=== PATIENT | female | born 1935 | race Caucasian/White ===

== ENCOUNTER 2018-03-05 13:47 | Inpatient (IN) | payer MEDICARE, MEDICAID ==
[2018-03-05] MEDS ORDERED: Acetaminophen 325 MG Tab PO PRN (14:54)
--- NOTE | 2018-03-05 15:50 | PCM.HP ---
H&P History of Present Illness - General Date of Service: 03/05/18 Admit Problem/Dx: Admission Diagnosis/Problem Admission Diagnosis/Problem Community acquired pneumonia Source of Information: Patient, Shelter Records History Limitations: Reports: No Limitations - History of Present Illness Initial Comments - Free Text/Narative: Mrs. Pimentel is an 82 yo female who presented to clinic today for re-evaluation of an ongoing cough for the past 10-14 days. Symptoms started around 02/22 with congestion, rhinorrhea, cough, and wheezing. She was seen in clinic on 02/25 and diagnosed with a viral illness; symptomatic cares were recommended. She was then seen again on 03/01 for worsening symptoms. She was started on azithromycin and given instructions to follow-up in 2 days. She was seen then on 03/03 and started on prednisone. Despite all of this, she has not improved. In fact, she states that she may actually be feeling worse since her last visit. She continues with the cough that feels "wet" but she is unable to get anything up. She also still feels quite short of breath as well. I had been under the impression she was getting her albuterol at least twice/day but it sounds like this is not the case. She is getting it at most once/day and it is helpful when she gets it. She denies any chest pain. She has not had any fever or chills but does feel generally weak and fatigued. She really does not feel she has improved with any of the above interventions. She has a history of pneumonia and felt like this might be what is going on now as well. - Related Data Allergies/Adverse Reactions: Allergies Allergy/AdvReac Type Severity Reaction Status Date / Time No Known Allergies Allergy Verified 03/05/18 15:31 Home Medications: Home Meds Acetaminophen [Tylenol] 650 mg PO Q4H PRN MDD 3000 mg 01/21/14 [History] Albuterol/Ipratropium [DuoNeb 3-0.5 MG/3 ML] 3 ml NEB Q4H PRN 01/21/14 [History] Furosemide [Lasix] 40 mg PO DAILY 01/21/14 [History] Gabapentin [Neurontin] 300 mg PO BEDTIME 01/21/14 [History] Metoprolol Succinate [Toprol XL 100mg] 50 mg PO DAILY 01/21/14 [History] Venlafaxine [Effexor XR 24 Hr] 75 mg PO DAILY 01/21/14 [History] Donepezil [Aricept] 10 mg PO BID 09/22/15 [History] Meloxicam 7.5 mg PO DAILY 09/22/15 [History] Potassium Chloride [Klor-Con M10] 10 meq PO DAILY 09/22/15 [History] Albuterol Sulfate [Ventolin Hfa] 2 inh PO Q4H PRN 03/05/18 [History] Azithromycin [IJD: Azithromycin] 250 mg PO DAILY 03/05/18 [History] Cholecalciferol (Vitamin D3) [Vitamin D3] 4,000 unit PO DAILY 03/05/18 [History] Cyanocobalamin (Vitamin B12) [Vitamin B12] 1,000 mcg PO DAILY 03/05/18 [History] Docusate Sodium [Colace] 100 mg PO DAILY 03/05/18 [History] Ergocalciferol (Vitamin D2) [Vitamin D2] 50,000 units PO WEEKLY 03/05/18 [ History] Fluticasone/Vilanterol [Breo Ellipta 200-25 Mcg INH] 1 inh PO DAILY 03/05/18 [ History] Levothyroxine Sodium [Synthroid] 75 mcg PO DAILY 03/05/18 [History] Magnesium Oxide [Magnesium] 400 mg PO DAILY 03/05/18 [History] Omeprazole 40 mg PO DAILY 03/05/18 [History] Polyethylene Glycol 3350 [MiraLAX] 17 gram PO DAILY PRN 03/05/18 [History] Simvastatin 40 mg PO BEDTIME 03/05/18 [History] Venlafaxine HCl [Venlafaxine ER] 150 mg PO DAILY 03/05/18 [History] guaiFENesin [Mucinex] 600 mg PO DAILY PRN 03/05/18 [History] predniSONE 40 mg PO DAILY 03/05/18 [History] risperiDONE 0.25 mg PO BID 03/05/18 [History] traZODone HCl [Trazodone HCl] 50 mg PO DAILY 03/05/18 [History] Past Medical History HEENT History: Reports: Cataract, Retinal Detachment, Other (See Below) Other HEENT History: pseudophakos, presbyopia, blepharitis, posterior vitreous detachment, Cardiovascular History: Reports: CAD, Heart Failure, High Cholesterol, Hypertension, Other (See Below) Other Cardiovascular History: parox SV tach Respiratory History: Reports: Asthma, COPD, Sleep Apnea, Other (See Below) Other Respiratory History: centrilobular emphysema Gastrointestinal History: Reports: Chronic Constipation, Colon Polyp, Diverticulosis, GERD, Other (See Below) Other Gastrointestinal History: lower gi bleed Genitourinary History: Reports: Chronic Renal Insuffiency Musculoskeletal History: Reports: Fibromyalgia, Other (See Below) Other Musculoskeletal History: lumbar DJD, disorder of bone or cartilage, carpal tunnel Neurological History: Reports: Other (See Below) (vascular dementia) Psychiatric History: Reports: Dementia, Depression, Hallucinations, Other (See Below) Other Psychiatric History: insomnia, situational stress Endocrine/Metabolic History: Reports: Hypothyroidism, Vitamin D Deficiency, Other (See Below) Other Endocrine/Metabolic History: enlarged lymph nodes, hypergycemia Hematologic History: Reports: B12 Deficiency, Iron Deficiency, Other (See Below) Other Hematologic History: leukocytosis, vit d deficiency, hypomagnesium Immunologic History: Reports: None Oncologic (Cancer) History: Reports: Thyroid Dermatologic History: Reports: None - Past Surgical History HEENT Surgical History: Reports: Eye Surgery GI Surgical History: Reports: Cholecystectomy, Hernia Repair/Other, Other (See Below) (hemicolectomy) Female Surgical History: Reports: Hysterectomy Endocrine Surgical History: Reports: Thyroidectomy Social & Family History - Family History Cardiac: Reports: [place] Endocrine/Metabolic: Reports: Diabetes, type II Oncologic: Reports: Breast, Ovarian - Tobacco Use Smoking Status *Q: Never Smoker Second Hand Smoke Exposure: No - Caffeine Use Caffeine Use: Reports: Coffee, Soda - Alcohol Use Alcohol Use History: No Days Per Week of Alcohol Use: 0 Number of Drinks Per Day: 0 Total Drinks Per Week: 0 Alcohol Use in Last Twelve Months: No - Recreational Drug Use Recreational Drug Use: No Drug Use in Last 12 Months: No - Living Situation & Occupation Living situation: Reports: , Extended Care Facility Occupation: Retired H&P Review of Systems - Review of Systems: Review Of Systems: See Below General: Reports: Malaise, Weakness, Fatigue HEENT: Reports: Rhinitis, Sinus Congestion Pulmonary: Reports: Shortness of Breath, Wheezing, Cough Cardiovascular: Reports: No Symptoms Gastrointestinal: Reports: No Symptoms Genitourinary: Reports: No Symptoms Musculoskeletal: Reports: No Symptoms Skin: Reports: No Symptoms Neurological: Reports: No Symptoms Hematologic/Lymphatic: Reports: No Symptoms Exam - Exam Exam: See Below - Vital Signs Vital Signs: Last Vital Signs Temp 36.4 C 03/05/18 15:09 Pulse 58 L 03/05/18 15:09 Resp 16 03/05/18 15:09 BP 158/95 H 03/05/18 15:09 Pulse Ox 96 03/05/18 15:09 Weight: 79.016 kg - Exam General: Alert, Cooperative HEENT: Conjunctiva Clear, Mucosa Moist & [place], Posterior Pharynx Clear, Pupils Equal, Pupils Reactive, TMs Clear Neck: Supple, Trachea Midline. No: Lymphadenopathy, Thyromegaly Lungs: Normal Respiratory Effort, Crackles (RLL), Wheezing (diffusely) Cardiovascular: Regular Rate, Regular Rhythm, Normal S1, Normal S2. No: Systolic Murmur, Diastolic Murmur GI/Abdominal Exam: Normal Bowel Sounds, Soft, Non-Tender, No Organomegaly, No Distention, No Mass Extremities: Normal Inspection, Non-Tender, No Pedal Edema, Normal Capillary Refill Skin: Warm, Dry, Intact - Problem List (1) Community acquired pneumonia SNOMED Code(s): 647129069 ICD Code: J18.9 - PNEUMONIA, UNSPECIFIED ORGANISM Status: Acute Current Visit: Yes Problem Details: - Patient does have more crackles in the RLL today as well as a leukocytosis and an infiltrate in the RLL on chest x-ray. - Therefore, most appropriate diagnosis is community acquired pneumonia. CURB- 65 score is 2, which is borderline. However, she has been on outpatient treatment for the past week; therefore, admission is recommended on that basis. - She is in agreement as are both of her daughters. - Will continue azithromycin but add ceftriaxone. - If she is not improving over the next 24-48 hours, may need to transition to levofloxacin instead. - Will obtain blood cultures if febrile. - Patient will not be able to give a sputum culture as she cannot cough up the sputum. - Continue guaifenesin and treat COPD exacerbation as below. - Oxygen PRN. Qualifiers: Laterality: right Lung location: lower lobe of lung Qualified Code(s): J18.1 - Lobar pneumonia, unspecified organism (2) COPD exacerbation SNOMED Code(s): 226006916 ICD Code: J44.1 - CHRONIC OBSTRUCTIVE PULMONARY DISEASE W (ACUTE) EXACERBATION Status: Acute Current Visit: Yes Problem Details: - Patient also has a COPD/asthma exacerbation. - Will increase prednisone dose to 60 mg. This can be tapered as soon as she is improving. - Otherwise, will also schedule DuoNebs every 4 hours, which can also be spaced as she is improving. - Continue Breo. (3) Asthma SNOMED Code(s): 297804820 ICD Code: J45.909 - UNSPECIFIED ASTHMA, UNCOMPLICATED Status: Acute Current Visit: Yes Problem Details: - See above. Qualifiers: Asthma severity: moderate Asthma persistence: persistent Asthma complication type: with acute exacerbation Qualified Code(s): J45.41 - Moderate persistent asthma with (acute) exacerbation (4) Dehydration, mild SNOMED Code(s): 1167365907682 ICD Code: E86.0 - DEHYDRATION Status: Acute Current Visit: Yes Problem Details: - Creatinine is up slightly from her usual but not enough to call IZABEL. - Will give gentle IV fluids of 75 cc/hr overnight and recheck labs in the am. (5) Chronic kidney disease SNOMED Code(s): 723281202 ICD Code: N18.9 - CHRONIC KIDNEY DISEASE, UNSPECIFIED Status: Chronic Current Visit: Yes Problem Details: - See above. Qualifiers: Chronic kidney disease stage: stage 3 (moderate) Qualified Code(s): N18.3 - Chronic kidney disease, stage 3 (moderate) (6) Vascular dementia SNOMED Code(s): 404516964 ICD Code: F01.50 - VASCULAR DEMENTIA WITHOUT BEHAVIORAL DISTURBANCE Status : Chronic Current Visit: Yes Problem Details: - Frequent reorienting will be important. - Continue aricept and risperdal. Qualifiers: Dementia behavioral disturbance: with behavioral disturbance Qualified Code (s): F01.51 - Vascular dementia with behavioral disturbance (7) Hypertension SNOMED Code(s): 62415141 ICD Code: I10 - ESSENTIAL (PRIMARY) HYPERTENSION Status: Chronic Current Visit: Yes Problem Details: - BP acceptable on admission. - Will continue metoprolol and lasix. Qualifiers: Hypertension type: essential hypertension Qualified Code(s): I10 - Essential (primary) hypertension (8) Diastolic CHF SNOMED Code(s): 437586677, 653536907 ICD Code: I50.30 - UNSPECIFIED DIASTOLIC (CONGESTIVE) HEART FAILURE Status : Chronic Current Visit: Yes Problem Details: - No evidence of CHF exacerbation. - Will monitor for fluid overload as she gets IV rehydration. - Continue lasix. Qualifiers: Heart failure chronicity: chronic Qualified Code(s): I50.32 - Chronic diastolic (congestive) heart failure (9) CAD (coronary artery disease) SNOMED Code(s): 64067952 ICD Code: I25.10 - ATHSCL HEART DISEASE OF [place] CORONARY ARTERY W/O ANG PCTRS Status: Chronic Current Visit: Yes Problem Details: - Asymptomatic. - Continue home medications. Qualifiers: Coronary Disease-Associated Artery/Lesion type: [place] artery [place] vs. transplanted heart: [place] heart Associated angina: without angina Qualified Code(s): I25.10 - Atherosclerotic heart disease of [place] coronary artery without angina pectoris (10) Fibromyalgia SNOMED Code(s): 769566369 ICD Code: M79.7 - FIBROMYALGIA Status: Chronic Current Visit: Yes Problem Details: - Hold mobic while on lovenox. - Can use tylenol instead for pain. Problem List Initiated/Reviewed/Updated: Yes Orders Last 24hrs: Active Orders 24 hr Category Date Time Status Admission Status [Patient Status] [ADT] Routine ADT 03/05/18 14:37 Active Notify Provider Vital Signs [RC] ASDIRECTED Care 03/05/18 15:32 Ordered Oxygen Therapy [RC] PRN Care 03/05/18 15:32 Ordered RT Aerosol Therapy [RC] ASDIRECTED Care 03/05/18 15:35 Ordered Up With Assistance [RC] ASDIRECTED Care 03/05/18 14:54 Ordered VTE/DVT Education [RC] PER UNIT ROUTINE Care 03/05/18 15:32 Ordered Vital Signs [RC] Q4H Care 03/05/18 15:32 Ordered Regular Diet [DIET] Diet 03/05/18 Dinner Ordered CULTURE MRSA SURVEY [RM] Routine Lab 03/05/18 14:40 Ordered Acetaminophen [Tylenol] Med 03/05/18 14:54 Ordered 650 mg PO Q4H PRN Albuterol/Ipratropium [DuoNeb 3.0-0.5 MG/3 ML] Med 03/05/18 15:00 Ordered 3 ml NEB Q4H Azithromycin [Zithromax] Med 03/06/18 08:00 Ordered 250 mg PO DAILY Enoxaparin [Lovenox] Med 03/06/18 08:00 Ordered 40 mg SUBCUT DAILY Lactated Ringers [Ringers, Lactated] 1,000 ml Med 03/05/18 15:00 Ordered IV ASDIRECTED cefTRIAXone [Rocephin] Med 03/05/18 15:45 Ordered 2 gm IVPUSH Q24H Resuscitation Status Routine Resus Stat 03/05/18 14:54 Ordered Medication Orders Acetaminophen (Tylenol) 650 mg PO Q4H PRN PRN Reason: Pain (Mild 1-3)/fever Albuterol/Ipratropium (Duoneb 3.0-0.5 Mg/3 Ml) 3 ml NEB Q4H LEXIE Azithromycin (Zithromax) 250 mg PO DAILY LEXIE Stop: 03/07/18 08:01 Ceftriaxone Sodium (Rocephin) 2 gm IVPUSH Q24H LEXIE Enoxaparin Sodium (Lovenox) 40 mg SUBCUT DAILY LEXIE Lactated Ringer's (Ringers, Lactated) 1,000 mls @ 75 mls/hr IV ASDIRECTED LEXIE Assessment/Plan Comment:: 82 yo female admitted with pneumonia and COPD/asthma exacerbation after having ongoing cough and shortness of breath despite outpatient interventions. Meets criteria for admission due to failure of outpatient treatment and CURB-65 score of 2. Will continue azithromycin and add ceftriaxone. Increase prednisone to 60 mg and schedule DuoNebs every 4 hours. Continue home medications apart from vitamins and mobic. Lovenox for VTE prophylaxis. She wishes to be DNR/DNI, which her current POA (daughter Светлана) agrees with. Anticipate admission through the weekend with likely dismissal back to the care center on Thursday. Care will be signed out to retort or condenser press operator provider for the weekend.
[2018-03-05] MEDS: Lactated Ringers 1,000 ML IV SCH (16:01)
[2018-03-05] MEDS: cefTRIAXone 2 GM Vial IVPUSH SCH (16:02)
[2018-03-05] MEDS: Albuterol/Ipratropium 3.0-0.5 MG/3 ML Neb Soln NEB SCH ×3 (16:03→22:40)
[2018-03-05] MEDS ORDERED: Polyethylene Glycol 3350 Powder 17 GM Packet PO PRN (16:27)
[2018-03-05] MEDS: Gabapentin 300 MG Cap PO SCH (20:00)
[2018-03-05] MEDS: Simvastatin 40 MG Tab PO SCH (20:00)
[2018-03-05] MEDS: traZODone 50 MG Tab PO SCH (20:00)
[2018-03-05] MEDS: Donepezil 10 MG Tab PO SCH (20:00)
[2018-03-05] MEDS: risperiDONE 0.25 MG Tab PO SCH (20:00)
[2018-03-05] MEDS: guaiFENesin 600 MG Tab.ER PO SCH (20:00)
[2018-03-06] MEDS: Albuterol/Ipratropium 3.0-0.5 MG/3 ML Neb Soln NEB SCH ×6 (02:45→23:11)
[2018-03-06] MEDS: Lactated Ringers 1,000 ML IV SCH (05:26)
[2018-03-06] MEDS: Omeprazole 20 MG Cap.CR PO SCH (06:18)
[2018-03-06] MEDS: Levothyroxine 75 MCG Tab PO SCH (06:18)
[2018-03-06] MEDS: Formoterol/Mometasone 200-5 MCG 8.8 GM Inhaler IH SCH ×2 (08:26→19:51)
[2018-03-06] MEDS: Enoxaparin 40 MG/0.4 ML Syringe SUBCUT SCH (08:26)
[2018-03-06] MEDS: Metoprolol Succinate 50 MG Tab.ER PO SCH (08:28)
[2018-03-06] MEDS: Docusate Sodium 100 MG Cap PO SCH (08:28)
[2018-03-06] MEDS: Azithromycin 250 MG Tab PO SCH (08:29)
[2018-03-06] MEDS: Venlafaxine 75 MG Cap.ER PO SCH (08:29)
[2018-03-06] MEDS: risperiDONE 0.25 MG Tab PO SCH ×2 (08:29→19:50)
[2018-03-06] MEDS: Cyanocobalamin (Vitamin B12) 1,000 MCG Tab PO SCH (08:29)
[2018-03-06] MEDS: predniSONE 20 MG Tab PO SCH (08:29)
[2018-03-06] MEDS: Potassium Chloride 10 MEQ Tab.ER PO SCH (08:29)
[2018-03-06] MEDS: guaiFENesin 600 MG Tab.ER PO SCH ×2 (08:30→19:50)
[2018-03-06] MEDS: Venlafaxine 150 MG Cap.ER PO SCH (08:30)
[2018-03-06] MEDS: Magnesium Oxide 400 MG Tab PO SCH (08:30)
[2018-03-06] MEDS: Donepezil 10 MG Tab PO SCH ×2 (08:30→19:50)
[2018-03-06] MEDS: Furosemide 40 MG Tab PO SCH (08:30)
--- NOTE | 2018-03-06 14:09 | PCM.PN ---
- General Info Date of Service: 03/06/18 Subjective Update: Progress note March 06 hospital day 2 A she was admitted yesterday for right lower lobe infiltrate. Patient states she did not have any fever or cough she just felt fatigued. Admission note indicates that she was treated for an outpatient lung infection for 10 days did not improve. She was admitted because of failure to improve and leukocytosis white count is listed. Patient continues to feel tired but denies any shortness of breath, chest pain, cough . Has no GI, , musculoskeletal symptoms Objective Temperature is 97.4 and she has been afebrile overnight; pulse 63; blood pressure 134/60; respiratory rate 20: O2 sat 93% on room air Patient is in no acute distress she is awake and alert Lungs show diffuse rhonchi and some rales in the bases Lungs: Clear Abdomen: Soft and nontender Extremities no edema Labs White count 15,700 with hemoglobin 11.5 hematocrit 35.6 Electrolytes normal Creatinine 1.1 with a BUN of 21 Meds as below Impression 1. Pneumonia with cytosis and shortness of breath: We'll continue with Rocephin and azithromycin for now, recheck CBC in the morning if it's elevated will repeat chest x-ray 2. COPD continue scheduled a duo nebs and prednisone, start peak flow measurements ;if failing to improve may need IV steroids 3. History of CHF: Check BMP and BNP, hold IV fluids - Patient Data Vitals - Most Recent: Last Vital Signs Temp 97.4 F 03/06/18 10:00 Pulse 63 03/06/18 10:00 Resp 20 03/06/18 10:00 BP 134/60 03/06/18 10:00 Pulse Ox 93 L 03/06/18 10:00 Weight - Most Recent: 174 lb 3.2 oz I&O - Last 24 Hours: Intake & Output 03/05/18 03/06/18 03/06/18 22:59 06:59 14:59 Intake Total 118 1343 360 Output Total 197 946 6859 Balance -482 743 -1340 Lab Results Last 24 Hours: Laboratory Results - last 24 hr 03/06/18 03/06/18 Range/Units 07:37 07:37 WBC 15.7 H (4.0-10.0) x10^3/uL RBC 3.79 L (4.00-5.50) x10^6/uL Hgb 11.4 L (12.0-16.0) g/dL Hct 35.6 (33.0-47.0) % MCV 93.9 H D (78.0-93.0) fL MCH 30.1 (26.0-32.0) pg MCHC 32.0 (32.0-36.0) g/dL RDW Coeff of [place] 14.0 (10.0-15.0) % Plt Count 280 (130-400) x10^3/uL Neut % (Auto) 51.9 (50.0-80.0) % Lymph % (Auto) 36.5 (25.0-50.0) % [place] % (Auto) 11.3 H (2.0-11.0) % Eos % (Auto) 0.2 (0.0-4.0) % Baso % (Auto) 0.1 L (0.2-1.2) % Sodium 143 (136-145) mmol/L Potassium 3.8 (3.5-5.1) mmol/L Chloride 105 (98-107) mmol/L Carbon Dioxide 27 (21-32) mmol/L Anion Gap 14.8 (10-20) mmol/L BUN 21 H (7-18) mg/dL Creatinine 1.1 H (0.55-1.02) mg/dL Est Cr Clr Drug Dosing 30.11 mL/min Estimated GFR (MDRD) 47 Glucose 79 (74-106) mg/dL Calcium 8.5 (8.5-10.1) mg/dL Eric Results Last 24 Hours: Microbiology 03/05/18 14:40 MRSA Surveillance Culture - Final Nares, Unspecified NO MRSA ISOLATED Med Orders - Current: Current Medications Acetaminophen (Tylenol) 650 mg PO Q4H PRN PRN Reason: Pain (Mild 1-3)/fever Albuterol/Ipratropium (Duoneb 3.0-0.5 Mg/3 Ml) 3 ml NEB Q4HRRT [facility] Last Admin: 03/06/18 11:15 Dose: 3 ml Azithromycin (Zithromax) 250 mg PO DAILY LEXIE Stop: 03/07/18 08:01 Last Admin: 03/06/18 08:29 Dose: 250 mg Ceftriaxone Sodium (Rocephin) 2 gm IVPUSH Q24H [facility] Last Admin: 03/05/18 16:02 Dose: 2 gm Cyanocobalamin (Vitamin B12) 1,000 mcg PO DAILY [facility] Last Admin: 03/06/18 08:29 Dose: 1,000 mcg Docusate Sodium (Colace) 100 mg PO DAILY [facility] Last Admin: 03/06/18 08:28 Dose: 100 mg Donepezil HCl (Aricept) 10 mg PO BID [facility] Last Admin: 03/06/18 08:30 Dose: 10 mg Enoxaparin Sodium (Lovenox) 40 mg SUBCUT DAILY [facility] Last Admin: 03/06/18 08:26 Dose: 40 mg Furosemide (Lasix) 40 mg PO DAILY [facility] Last Admin: 03/06/18 08:30 Dose: 40 mg Gabapentin (Neurontin) 300 mg PO BEDTIME [facility] Last Admin: 03/05/18 20:00 Dose: 300 mg Guaifenesin (Mucinex) 600 mg PO BID [facility] Last Admin: 03/06/18 08:30 Dose: 600 mg Lactated Ringer's (Ringers, Lactated) 1,000 mls @ 75 mls/hr IV ASDIRECTED [facility] Last Admin: 03/06/18 05:26 Dose: 75 mls/hr Levothyroxine Sodium (Levothyroxine) 75 mcg PO ACBREAKFAST [facility] Last Admin: 03/06/18 06:18 Dose: 75 mcg Magnesium Oxide (Magnesium Oxide) 400 mg PO DAILY [facility] Last Admin: 03/06/18 08:30 Dose: 400 mg Metoprolol Succinate (Toprol Xl) 50 mg PO DAILY [facility] Last Admin: 03/06/18 08:28 Dose: 50 mg Mometasone Furoate/Formoterol Fumar (Dulera 200-5 Mcg) 2 puff IH BIDRT [facility] Last Admin: 03/06/18 08:26 Dose: 2 puff Omeprazole (Omeprazole) 40 mg PO ACBREAKFAST [facility] Last Admin: 03/06/18 06:18 Dose: 40 mg Polyethylene Glycol (Miralax) 17 gm PO DAILY PRN PRN Reason: Constipation Potassium Chloride (Klor-Con 10) 10 meq PO DAILY [facility] Last Admin: 03/06/18 08:29 Dose: 10 meq Prednisone (Prednisone) 60 mg PO WITHBREAKFAST [facility] Last Admin: 03/06/18 08:29 Dose: 60 mg Risperidone (Risperidal) 0.25 mg PO BID [facility] Last Admin: 03/06/18 08:29 Dose: 0.25 mg Simvastatin (Zocor) 40 mg PO BEDTIME [facility] Last Admin: 03/05/18 20:00 Dose: 40 mg Trazodone HCl (Trazodone) 50 mg PO BEDTIME [facility] Last Admin: 03/05/18 20:00 Dose: 50 mg Venlafaxine HCl (Effexor Xr) 75 mg PO DAILY [facility] Last Admin: 03/06/18 08:29 Dose: 75 mg Venlafaxine HCl (Effexor Xr) 150 mg PO DAILY [facility] Last Admin: 03/06/18 08:30 Dose: 150 mg - Problem List Review Problem List Initiated/Reviewed/Updated: Yes - My Orders Last 24 Hours: My Active Orders 03/06/18 14:02 RT Peak Flow Measurement [RC] ASDIRECTED 03/07/18 05:11 CBC WITH AUTO DIFF [HEME] Routine - Plan Plan:: 82 yo female admitted with pneumonia and COPD/asthma exacerbation after having ongoing cough and shortness of breath despite outpatient interventions. Meets criteria for admission due to failure of outpatient treatment and CURB-65 score of 2. Will continue azithromycin and add ceftriaxone. Increase prednisone to 60 mg and schedule DuoNebs every 4 hours. Continue home medications apart from vitamins and mobic. Lovenox for VTE prophylaxis. She wishes to be DNR/DNI, which her current POA (daughter Светлана) agrees with. Anticipate admission through the weekend with likely dismissal back to the care center on Thursday. Care will be signed out to window installation subcontractor provider for the weekend.
[2018-03-06] MEDS ORDERED: methylPREDNISolone Sodium Succinate 125 MG/2 ML SDV IV ONE (14:28)
[2018-03-06] MEDS: cefTRIAXone 2 GM Vial IVPUSH SCH (15:12)
[2018-03-06] MEDS: traZODone 50 MG Tab PO SCH (19:50)
[2018-03-06] MEDS: Simvastatin 40 MG Tab PO SCH (19:50)
[2018-03-06] MEDS: Gabapentin 300 MG Cap PO SCH (19:50)
[2018-03-06] MEDS: Sodium Chloride 0.9% 10 ML Syringe FLUSH PRN (23:17)
[2018-03-07] MEDS: Albuterol/Ipratropium 3.0-0.5 MG/3 ML Neb Soln NEB SCH ×6 (03:03→22:56)
[2018-03-07] MEDS: Levothyroxine 75 MCG Tab PO SCH (06:06)
[2018-03-07] MEDS: Omeprazole 20 MG Cap.CR PO SCH (06:06)
[2018-03-07] MEDS: Enoxaparin 40 MG/0.4 ML Syringe SUBCUT SCH (07:54)
[2018-03-07] MEDS: predniSONE 20 MG Tab PO SCH (07:55)
[2018-03-07] MEDS: Potassium Chloride 10 MEQ Tab.ER PO SCH (07:55)
[2018-03-07] MEDS: Donepezil 10 MG Tab PO SCH ×2 (07:55→19:43)
[2018-03-07] MEDS: Formoterol/Mometasone 200-5 MCG 8.8 GM Inhaler IH SCH ×2 (07:55→19:45)
[2018-03-07] MEDS: Magnesium Oxide 400 MG Tab PO SCH (07:55)
[2018-03-07] MEDS: Metoprolol Succinate 50 MG Tab.ER PO SCH (07:55)
[2018-03-07] MEDS: Furosemide 40 MG Tab PO SCH (07:55)
[2018-03-07] MEDS: Cyanocobalamin (Vitamin B12) 1,000 MCG Tab PO SCH (07:56)
[2018-03-07] MEDS: Venlafaxine 75 MG Cap.ER PO SCH (07:56)
[2018-03-07] MEDS: Azithromycin 250 MG Tab PO SCH (07:56)
[2018-03-07] MEDS: risperiDONE 0.25 MG Tab PO SCH ×2 (07:56→19:44)
[2018-03-07] MEDS: guaiFENesin 600 MG Tab.ER PO SCH ×2 (07:56→19:43)
[2018-03-07] MEDS: Venlafaxine 150 MG Cap.ER PO SCH (07:56)
[2018-03-07] MEDS: Docusate Sodium 100 MG Cap PO SCH (07:57)
--- NOTE | 2018-03-07 10:31 | PCM.PN ---
- General Info Date of Service: 03/07/18 Subjective Update: She continues to be tired and short of breath. She is having a great deal of difficulty raising secretions. Otherwise she has no complaints of eye or symptoms - Patient Data Vitals - Most Recent: Last Vital Signs Temp 97.4 F 03/07/18 09:44 Pulse 74 03/07/18 09:44 Resp 20 03/07/18 09:44 BP 140/74 03/07/18 09:44 Pulse Ox 93 L 03/07/18 09:44 Weight - Most Recent: 174 lb 3.2 oz I&O - Last 24 Hours: Intake & Output 03/06/18 03/07/18 03/07/18 22:59 06:59 14:59 Intake Total 750 360 Output Total 600 1000 300 Balance -600 -250 60 Lab Results Last 24 Hours: Laboratory Results - last 24 hr 03/07/18 03/07/18 Range/Units 07:25 07:25 WBC 16.7 H (4.0-10.0) x10^3/uL RBC 3.80 L (4.00-5.50) x10^6/uL Hgb 11.6 L (12.0-16.0) g/dL Hct 35.7 (33.0-47.0) % MCV 93.9 H (78.0-93.0) fL MCH 30.5 (26.0-32.0) pg MCHC 32.5 (32.0-36.0) g/dL RDW Coeff of Christie 13.8 (10.0-15.0) % Plt Count 300 (130-400) x10^3/uL Neut % (Auto) 66.8 (50.0-80.0) % Lymph % (Auto) 21.3 L (25.0-50.0) % Newberry % (Auto) 11.7 H (2.0-11.0) % Eos % (Auto) 0.1 (0.0-4.0) % Baso % (Auto) 0.1 L (0.2-1.2) % NT-Pro-B Natriuret Pep 432 (<=450) pg/mL Eric Results Last 24 Hours: Microbiology 03/05/18 14:40 MRSA Surveillance Culture - Final Nares, Unspecified NO MRSA ISOLATED Med Orders - Current: Current Medications Acetaminophen (Tylenol) 650 mg PO Q4H PRN PRN Reason: Pain (Mild 1-3)/fever Last Admin: 03/07/18 04:00 Dose: 650 mg Albuterol/Ipratropium (Duoneb 3.0-0.5 Mg/3 Ml) 3 ml NEB Q4HRRT [facility] Last Admin: 03/07/18 07:01 Dose: 3 ml Ceftriaxone Sodium (Rocephin) 2 gm IVPUSH Q24H [facility] Last Admin: 03/06/18 15:12 Dose: 2 gm Cyanocobalamin (Vitamin B12) 1,000 mcg PO DAILY [facility] Last Admin: 03/07/18 07:56 Dose: 1,000 mcg Docusate Sodium (Colace) 100 mg PO DAILY [facility] Last Admin: 03/07/18 07:57 Dose: Not Given Donepezil HCl (Aricept) 10 mg PO BID [facility] Last Admin: 03/07/18 07:55 Dose: 10 mg Doxycycline Hyclate (Vibramycin) 100 mg PO BID [facility] Enoxaparin Sodium (Lovenox) 40 mg SUBCUT DAILY [facility] Last Admin: 03/07/18 07:54 Dose: 40 mg Furosemide (Lasix) 40 mg PO DAILY [facility] Last Admin: 03/07/18 07:55 Dose: 40 mg Gabapentin (Neurontin) 300 mg PO BEDTIME [facility] Last Admin: 03/06/18 19:50 Dose: 300 mg Guaifenesin (Mucinex) 600 mg PO BID [facility] Last Admin: 03/07/18 07:56 Dose: 600 mg Levothyroxine Sodium (Levothyroxine) 75 mcg PO ACBREAKFAST [facility] Last Admin: 03/07/18 06:06 Dose: 75 mcg Magnesium Oxide (Magnesium Oxide) 400 mg PO DAILY [facility] Last Admin: 03/07/18 07:55 Dose: 400 mg Metoprolol Succinate (Toprol Xl) 50 mg PO DAILY [facility] Last Admin: 03/07/18 07:55 Dose: 50 mg Mometasone Furoate/Formoterol Fumar (Dulera 200-5 Mcg) 2 puff IH BIDRT [facility] Last Admin: 03/07/18 07:55 Dose: 2 puff Omeprazole (Omeprazole) 40 mg PO ACBREAKFAST [facility] Last Admin: 03/07/18 06:06 Dose: 40 mg Polyethylene Glycol (Miralax) 17 gm PO DAILY PRN PRN Reason: Constipation Potassium Chloride (Klor-Con 10) 10 meq PO DAILY [facility] Last Admin: 03/07/18 07:55 Dose: 10 meq Prednisone (Prednisone) 60 mg PO WITHBREAKFAST [facility] Last Admin: 03/07/18 07:55 Dose: 60 mg Risperidone (Risperidal) 0.25 mg PO BID [facility] Last Admin: 03/07/18 07:56 Dose: 0.25 mg Simvastatin (Zocor) 40 mg PO BEDTIME [facility] Last Admin: 03/06/18 19:50 Dose: 40 mg Sodium Chloride (Saline Flush) 10 ml FLUSH Q4H PRN PRN Reason: Keep Vein Open Last Admin: 03/06/18 23:17 Dose: 10 ml Trazodone HCl (Trazodone) 50 mg PO BEDTIME [facility] Last Admin: 03/06/18 19:50 Dose: 50 mg Venlafaxine HCl (Effexor Xr) 75 mg PO DAILY [facility] Last Admin: 03/07/18 07:56 Dose: 75 mg Venlafaxine HCl (Effexor Xr) 150 mg PO DAILY [facility] Last Admin: 03/07/18 07:56 Dose: 150 mg Discontinued Medications Azithromycin (Zithromax) 250 mg PO DAILY [facility] Stop: 03/07/18 08:01 Last Admin: 03/07/18 07:56 Dose: 250 mg Lactated Ringer's (Ringers, Lactated) 1,000 mls @ 75 mls/hr IV ASDIRECTED [facility] Last Admin: 03/06/18 05:26 Dose: 75 mls/hr Methylprednisolone Sodium Succinate (Solu-Medrol) 60 mg IV ONETIME ONE Stop: 03/06/18 14:29 Last Admin: 03/06/18 15:12 Dose: 60 mg - Exam General: Alert, No Acute Distress Lungs: Rhonchi, Wheezing, Other (Peak flow 200) Cardiovascular: Regular Rate, Regular Rhythm, No Murmurs GI/Abdominal Exam: Normal Bowel Sounds, Soft, Non-Tender Extremities: No Pedal Edema - Problem List & Annotations (1) Community acquired pneumonia SNOMED Code(s): 930410878 Code(s): J18.9 - PNEUMONIA, UNSPECIFIED ORGANISM Status: Acute Current Visit: Yes Qualifiers: Laterality: right Lung location: lower lobe of lung Qualified Code(s): J18.1 - Lobar pneumonia, unspecified organism - Problem List Review Problem List Initiated/Reviewed/Updated: Yes - My Orders Last 24 Hours: My Active Orders 03/06/18 14:02 RT Peak Flow Measurement [RC] ASDIRECTED 03/06/18 17:24 Communication Order [RC] 08,20 03/07/18 08:53 Flutter Valve Therapy [RT Chest Physiotherapy] [RC] Q1HWA 03/07/18 08:55 CULTURE SPUTUM + SMEAR [RM] Routine 03/07/18 10:30 Doxycycline [Vibramycin] 100 mg PO BID - Assessment Assessment:: Patient continues to have decreased peak flow, a lot of adventitious sounds her lungs. She has been afebrile however. She did not respond to the IV steroids At this point we'll try to raise her sputum with a flutter valve, taking Gram stain and culture sputum, trial of doxycycline for atypical organisms - Plan Plan:: 8
[2018-03-07] MEDS: Doxycycline 100 MG Cap PO SCH ×2 (11:01→19:44)
[2018-03-07] MEDS: cefTRIAXone 2 GM Vial IVPUSH SCH ×2 (14:54→15:06)
[2018-03-07] MEDS: Sodium Chloride 0.9% 10 ML Syringe FLUSH PRN (14:54)
[2018-03-07] MEDS: Gabapentin 300 MG Cap PO SCH (19:42)
[2018-03-07] MEDS: traZODone 50 MG Tab PO SCH (19:44)
[2018-03-07] MEDS: Simvastatin 40 MG Tab PO SCH (19:44)
[2018-03-08] MEDS ORDERED: guaiFENesin/Dextromethorphan 100-10 MG/5 ML Soln 10 ML Cup PO ONE (01:25)
[2018-03-08] MEDS: Albuterol/Ipratropium 3.0-0.5 MG/3 ML Neb Soln NEB SCH ×4 (03:12→14:57)
[2018-03-08] MEDS: Omeprazole 20 MG Cap.CR PO SCH (06:22)
[2018-03-08] MEDS: Levothyroxine 75 MCG Tab PO SCH (06:22)
[2018-03-08 07:43] LABS: CHLORIDE,CL 105 mmol/L (98-107); SODIUM,NA 141 mmol/L (136-145)
--- NOTE | 2018-03-08 09:00 | PN ---
Progress Note for JOSS LERMA Date: 03/08/2018 Room #: VM.204 SUBJECTIVE: The patient still continues to cough and complained of tightness in her chest. Cough is nonproductive. Otherwise, her strength she feels is back to normal. OBJECTIVE: VITAL SIGNS: Temperature is 36.6, pulse is 78, blood pressure is 135/77, saturations are 94% on room air, respiratory rate is 20. HEENT: Her pharynx is normal. LUNGS: Quite tight. HEART: Regular rate and rhythm. ABDOMEN: Soft. EXTREMITIES: No edema. LABORATORY DATA: Today shows that her white blood cell count slightly improved to 15.7, hemoglobin is 11.4 which is stable with 58 segs, 3 bands, 29 lymphocytes, 10 monos. Sodium 141, potassium 3.8, creatinine 1.1. Lactic acid is 2.0. Magnesium is 1.9. LFTs are normal. CRP is less than 0.1. ProBNP is 384 from 432. Albumin is 2.9. IMPRESSION: 1. Exacerbation of asthma. 2. Community-acquired pneumonia. 3. Dementia. 4. Hypertension. PLAN: We will have the patient continue with her q.4 hours albuterol with Atrovent nebs. She is also on oral prednisone and oral Dulera. We will start Singulair 10 mg 1 pill daily to help with lung function; otherwise, her other oral medications are stayed the same. She was placed on flutter valve. In terms of respiratory therapy, it was noted that her peak flow was 200 on 03/07, and we will need to see what it is today. It may take another day for her steroids to help kick in. We will have Physical Therapy work with the patient to make certain she can walk in the hallways and to do well. Hopefully, she will be able to be stabilized and return home tomorrow to [facility]. The patient is only on doxycycline right now. She is already on Rocephin and she has not been able to produce a sputum sample. GM03/08/2018 08:41:21 MODL: 03/08/2018 08:57:42 /[id number] GUI
[2018-03-08] MEDS: Doxycycline 100 MG Cap PO SCH (09:51)
[2018-03-08] MEDS: predniSONE 20 MG Tab PO SCH (09:52)
[2018-03-08] MEDS: Potassium Chloride 10 MEQ Tab.ER PO SCH (09:52)
[2018-03-08] MEDS: Cyanocobalamin (Vitamin B12) 1,000 MCG Tab PO SCH (09:52)
[2018-03-08] MEDS: Venlafaxine 150 MG Cap.ER PO SCH (09:53)
[2018-03-08] MEDS: Furosemide 40 MG Tab PO SCH (09:55)
[2018-03-08] MEDS: Venlafaxine 75 MG Cap.ER PO SCH (09:55)
[2018-03-08] MEDS: guaiFENesin 600 MG Tab.ER PO SCH (09:55)
[2018-03-08] MEDS: risperiDONE 0.25 MG Tab PO SCH (09:55)
[2018-03-08] MEDS: Metoprolol Succinate 50 MG Tab.ER PO SCH (09:56)
[2018-03-08] MEDS: Donepezil 10 MG Tab PO SCH (09:56)
[2018-03-08] MEDS: Docusate Sodium 100 MG Cap PO SCH (09:57)
[2018-03-08] MEDS: Formoterol/Mometasone 200-5 MCG 8.8 GM Inhaler IH SCH (09:58)
[2018-03-08] MEDS: Enoxaparin 40 MG/0.4 ML Syringe SUBCUT SCH (09:59)
[2018-03-08] MEDS: Magnesium Oxide 400 MG Tab PO SCH (10:10)
[2018-03-08] MEDS ORDERED: Montelukast 10 MG Tab PO SCH (20:00)
[2018-03-09] MEDS: Gabapentin 300 MG Cap PO SCH (04:03)
[2018-03-09] MEDS: Albuterol/Ipratropium 3.0-0.5 MG/3 ML Neb Soln NEB SCH ×3 (04:03→10:42)
[2018-03-09] MEDS: guaiFENesin 600 MG Tab.ER PO SCH ×2 (04:03→08:49)
[2018-03-09] MEDS: Formoterol/Mometasone 200-5 MCG 8.8 GM Inhaler IH SCH ×2 (04:03→06:52)
[2018-03-09] MEDS: Donepezil 10 MG Tab PO SCH ×2 (04:03→08:49)
[2018-03-09] MEDS: risperiDONE 0.25 MG Tab PO SCH ×2 (04:05→08:48)
[2018-03-09] MEDS: traZODone 50 MG Tab PO SCH (04:12)
[2018-03-09] MEDS: Doxycycline 100 MG Cap PO SCH ×2 (04:13→08:47)
[2018-03-09] MEDS: Simvastatin 40 MG Tab PO SCH (04:13)
[2018-03-09] MEDS: Levothyroxine 75 MCG Tab PO SCH (06:53)
[2018-03-09] MEDS: Omeprazole 20 MG Cap.CR PO SCH (06:53)
[2018-03-09] MEDS: predniSONE 20 MG Tab PO SCH (08:46)
[2018-03-09] MEDS: Potassium Chloride 10 MEQ Tab.ER PO SCH (08:47)
[2018-03-09] MEDS: Venlafaxine 75 MG Cap.ER PO SCH (08:47)
[2018-03-09] MEDS: Furosemide 40 MG Tab PO SCH (08:48)
[2018-03-09] MEDS: Cyanocobalamin (Vitamin B12) 1,000 MCG Tab PO SCH (08:48)
[2018-03-09] MEDS: Venlafaxine 150 MG Cap.ER PO SCH (08:48)
[2018-03-09] MEDS: Docusate Sodium 100 MG Cap PO SCH (08:49)
[2018-03-09] MEDS: Metoprolol Succinate 50 MG Tab.ER PO SCH (08:50)
[2018-03-09] MEDS: Enoxaparin 40 MG/0.4 ML Syringe SUBCUT SCH (08:50)
[2018-03-09] MEDS ORDERED: Furosemide 20 MG Tab PO ONE (09:03)
[2018-03-09] MEDS: Magnesium Oxide 400 MG Tab PO SCH (09:58)
--- NOTE | 2018-03-09 10:13 | PN ---
Progress Note for JOSS LERMA Date: 03/09/2018 Room #: VM.204 SUBJECTIVE: She still continues to cough, but she cannot bring anything up. She is feeling stronger otherwise. She had a peak flow of 150 yesterday, which had been 200 the day previously. OBJECTIVE: Vital Signs: Her temperature is 36.7, pulse 96, blood pressure is 122/76, and sats are 97% on room air. General: She is alert, talkative, very forgetful. Heart: Regular rate and rhythm. Lungs: Have some inspiratory rhonchi bilaterally. Abdomen: Soft. Extremities: No edema. LABORATORY DATA: Chest x-ray does show some right lower lobe infiltrate. Lab work shows her white blood cell count is up to 16.9, hemoglobin 11.5, platelets are 301 with 58 segs, 27 lymphocytes. Sodium 141, potassium 3.8, creatinine 1.0, GFR 53, and calcium 8.2. IMPRESSION: 1. Community-acquired pneumonia. 2. Exacerbation of asthma. 3. Dementia. 4. Hypertension. PLAN: I will give the patient 1 time dose of Lasix just to help dry out her lungs to feel that she is stable to be discharged back to [facility]. We will switch her from Rocephin to Ceftin. We will continue her on her doxycycline as well as her prednisone 60 mg a day and we will stop her Lovenox. GM03/09/2018 09:08:00 MODL: 03/09/2018 09:35:11 /[id number] GUI
[2018-03-09 10:51] VITALS: BP 150/86
[2018-03-09] MEDS: cefTRIAXone 2 GM Vial IVPUSH SCH (12:27)
[2018-03-09] MEDS ORDERED: Cefuroxime 250 MG Tab PO SCH (20:00)
--- NOTE | 2018-03-10 10:48 | DISCH ---
PRIMARY DIAGNOSIS: Community-acquired pneumonia. SECONDARY DIAGNOSES: 1. Exacerbation of asthma/COPD. 2. Vascular dementia. 3. Hypertension. 4. COPD. 5. Dehydration. 6. Chronic kidney disease, stage 3. 7. Hypertension. 8. Diastolic congestive heart failure. 9. Coronary artery disease. 10.Fibromyalgia. SUMMARY OF ADMIT HISTORY AND PHYSICAL: The patient is an 82-year-old resident of [facility], who presented to the clinic today for re-evaluation of ongoing cough for the last 10-14 days. Her initial symptoms began about 02/22/2018 with congestion, rhinorrhea, cough, wheezing. On 02/25, felt to be viral. She was started on 03/01 on Zithromax. On 03/03, she was started on prednisone, but they have not helped. She was feeling worse when she presented to the clinic. She uses albuterol twice a day possibly. The patient has just recently been placed at the [facility] because of worsening behaviors with her dementia. She lives in the [facility]. PHYSICAL EXAMINATION: On admission, showed her temperature of 36.4, pulse 58, respirations 16, blood pressure 158/95, saturations are 96%. Chest x-ray showed an infiltrate on the right lower lobe. LABORATORY DATA: White blood cell count to be 15.7, hemoglobin 11.4, platelets 280 with 51 segs, 36 lymphocytes, 11 monocytes. Sodium 143, potassium 3.8, creatinine 1.1, GFR 47, glucose 79. SUMMARY OF HOSPITAL COURSE: The patient was placed on IV Rocephin as well as doxycycline. She received some IV fluids for hydration. She was placed on albuterol nebs every 4 hours while awake. She was placed originally 40 mg of prednisone and increased to 60 mg of prednisone. She did receive some lactated Ringer's. Her cough continued to be fairly tight. She had guaifenesin added. She was placed on Lovenox for DVT prophylaxis. To note, her cough was not productive. She was not able to submit a sputum sample. She was noted to be pleasantly confused. Her oxygen levels did improve. She did receive a 1 time dose of Solu-Medrol on 03/06 of 60 mg. She was started on doxycycline on 03/07/2018. Magnesium oxide had to be started on 03/08 because of a low magnesium level. She had a followup chest x-ray done on 03/09, which did show questionable atelectasis versus pleural effusion. She received a 1 time dose of Lasix on 03/09/2018. She was switched from Rocephin to cefuroxime. MEDICATIONS AT DISCHARGE: Will be Tylenol 325 two q.4 hours p.r.n., DuoNeb every 4 hours p.r.n., guaifenesin 300 mg 1 at bedtime, venlafaxine XR 75 mg daily, metoprolol XL 100 mg she takes 50 mg take daily, furosemide 40 mg 1 pill daily, Meloxicam 7.5 mg 1 pill daily, Aricept 10 mg 1 pill twice a day, potassium chloride 10 mEq 1 pill daily, omeprazole 40 mg 1 pill daily, simvastatin 40 mg 1 pill at bedtime, levothyroxine 75 mcg 1 pill daily which was a recent dose adjustment, trazodone 50 mg 1 pill daily, Risperdal 0.25 mg 1 pill twice a day, prednisone will be 60 mg a day for 5 days, then 40 mg a day for 5 days, then 20 mg a day for 5 days, then stop. Effexor XR 150 mg 1 pill daily, Breo inhaler 1 puff daily, vitamin B12 1000 mcg tablets daily, vitamin D3 2000 units capsule she takes 2 pills daily, magnesium oxide 400 mg 1 pill daily, MiraLAX 17 g packet daily p.r.n., albuterol HFA 2 puffs q.4 hours p.r.n., guaifenesin 600 mg 1 pill every 12 hours as needed for cough, docusate 100 mg 1 pill daily, doxycycline 100 mg 1 pill twice a day for 7 days, Singulair 10 mg 1 pill at bedtime (new medication). The patient will be seen at the [facility] on followup rounds. That will be done on 03/16/2018. The patient's code level status at the time of discharge is do not resuscitate, do not intubate. Patient's peak flow meter at the time of discharge was 150. I do anticipate the patient to have recurrence of her lung problem as if she has had a history of asthma exacerbations. Hopefully, the Singulair will help. The DuoNeb's I feel are just going to be short-term use for the patient. GM03/09/2018 16:17:46 MODL: 03/10/2018 09:52:59 /[id number]
== END 2018-03-09 13:35 | DRG 194 ==
LOC: UNDOADMIN 13:47 → VM.MS 13:47
PROVIDERS: ADMIT Family Medicine; ATTEND Family Medicine
DX: J18.9 Pneumonia, unspecified organism (principal); J44.0 Chronic obstructive pulmonary disease with (acute) lower respiratory infection; J44.1 Chronic obstructive pulmonary disease with (acute) exacerbation; I13.0 Hypertensive heart and chronic kidney disease with heart failure and stage 1 through stage 4 chronic kidney disease, or unspecified chronic kidney disease; I50.32 Chronic diastolic (congestive) heart failure; J45.41 Moderate persistent asthma with (acute) exacerbation; E86.0 Dehydration; F01.50 Vascular dementia, unspecified severity, without behavioral disturbance, psychotic disturbance, mood disturbance, and anxiety; N18.3 Chronic kidney disease, stage 3 (moderate); I25.10 Atherosclerotic heart disease of native coronary artery without angina pectoris; M79.7 Fibromyalgia; E78.00 Pure hypercholesterolemia, unspecified; H52.4 Presbyopia; G47.30 Sleep apnea, unspecified; K59.09 Other constipation; K57.90 Diverticulosis of intestine, part unspecified, without perforation or abscess without bleeding; K21.9 Gastro-esophageal reflux disease without esophagitis; M51.36 Other intervertebral disc degeneration, lumbar region; F32.9 Major depressive disorder, single episode, unspecified; G47.00 Insomnia, unspecified; E55.9 Vitamin D deficiency, unspecified; E89.0 Postprocedural hypothyroidism; E53.8 Deficiency of other specified B group vitamins; E61.1 Iron deficiency; Z90.49 Acquired absence of other specified parts of digestive tract; Z79.52 Long term (current) use of systemic steroids; Z96.1 Presence of intraocular lens; Z86.010 Personal history of colon polyps; Z79.899 Other long term (current) drug therapy; Z90.710 Acquired absence of both cervix and uterus; Z66 Do not resuscitate
CPT/HCPCS: 36415; 71046; 80048; 80053; 83605; 83735; 83880; 85025; 86140; 94640; 94667; 94760; A9270-GY; J0696; J1650; J2930; J7050; J7120

== ENCOUNTER 2019-01-06 08:36 | Observation (INO) | payer MEDICARE, MEDICAID ==
[2019-01-06] MEDS ORDERED: Sodium Chloride 0.9% 10 ML Syringe FLUSH PRN (08:46)
[2019-01-06] MEDS ORDERED: cefTRIAXone 2 GM Vial IVPUSH ONE (09:11)
--- NOTE | 2019-01-06 09:26 | EDM.PDOC ---
ED HPI GENERAL MEDICAL PROBLEM - General Chief Complaint: Respiratory Problem Stated Complaint: FEVER 102.7;HARD TIME BREATHING Time Seen by Provider: 01/06/19 09:19 Source of Information: Reports: EMS, [facility] Records, RN Notes Reviewed - History of Present Illness INITIAL COMMENTS - FREE TEXT/NARRATIVE: Pt. presents to ER with difficulty breathing, hypoxia, and fever. She just finished a 7 day course of augmentin for bronchitis 2 days ago. She is a resident at [facility]. She has been ill for over a week, but the significant change just started this AM/last night. She had been chilled with rigors. RA O2 sat 88%. She is continuing to take her prednisone. Her mentation is unchanged. She is a resident at a locked unit at the [facility]. Has a history of dementia according to her documentation, but she is really quite alert this AM. Family states that she has been in to the clinic numerous times and they feel she has been declining over the past several months. Pt. offers no complains and states that she feels well. Onset Date: 01/06/19 Location: Reports: Generalized Treatments PERSONAL PROPERTY ASSESSOR: Reports: Oxygen - Related Data Allergies Allergy/AdvReac Type Severity Reaction Status Date / Time No Known Allergies Allergy Verified 03/05/18 15:31 Home Meds: Home Meds Acetaminophen [Tylenol] 650 mg PO Q4H PRN MDD 3000 mg 01/21/14 [History] Albuterol/Ipratropium [DuoNeb 3.0-0.5 MG/3 ML] 3 ml NEB Q4H PRN 01/21/14 [ History] Furosemide [Lasix] 40 mg PO DAILY 01/21/14 [History] Gabapentin [Neurontin] 300 mg PO BEDTIME 01/21/14 [History] Metoprolol Succinate [Toprol XL 100mg] 50 mg PO DAILY 01/21/14 [History] Venlafaxine [Effexor XR] 75 mg PO DAILY 01/21/14 [History] Donepezil [Aricept] 10 mg PO BID 09/22/15 [History] Meloxicam 7.5 mg PO DAILY 09/22/15 [History] Potassium Chloride [Klor-Con M10] 10 meq PO DAILY 09/22/15 [History] Albuterol Sulfate [Ventolin Hfa] 2 inh PO Q4H PRN 03/05/18 [History] Cholecalciferol (Vitamin D3) [Vitamin D3] 4,000 unit PO DAILY 03/05/18 [History] Cyanocobalamin (Vitamin B12) [Vitamin B12] 1,000 mcg PO DAILY 03/05/18 [History] Docusate Sodium [Colace] 100 mg PO DAILY 03/05/18 [History] Fluticasone/Vilanterol [Breo Ellipta 200-25 Mcg INH] 1 inh PO DAILY 03/05/18 [ History] Levothyroxine Sodium [Synthroid] 75 mcg PO DAILY 03/05/18 [History] Magnesium Oxide [Magnesium] 400 mg PO DAILY 03/05/18 [History] Omeprazole 40 mg PO DAILY 03/05/18 [History] Polyethylene Glycol 3350 [MiraLAX] 17 gram PO DAILY PRN 03/05/18 [History] Simvastatin 40 mg PO BEDTIME 03/05/18 [History] Venlafaxine HCl [Venlafaxine ER] 150 mg PO DAILY 03/05/18 [History] guaiFENesin [Mucinex] 600 mg PO DAILY PRN 03/05/18 [History] risperiDONE 0.25 mg PO BID 03/05/18 [History] traZODone HCl [Trazodone HCl] 50 mg PO DAILY 03/05/18 [History] Albuterol/Ipratropium [DuoNeb 3.0-0.5 MG/3 ML] 3 ml NEB Q4HRRT #120 neb [Rx] Doxycycline [Vibramycin] 100 mg PO BID #14 cap 03/09/18 [Rx] Montelukast [Singulair] 10 mg PO BEDTIME #30 tablet 03/09/18 [Rx] predniSONE 20 mg PO WITHBREAKFAST #30 tablet 03/09/18 [Rx] Past Medical History HEENT History: Reports: Cataract, Retinal Detachment, Other (See Below) Other HEENT History: pseudophakos, presbyopia, blepharitis, posterior vitreous detachment, Cardiovascular History: Reports: CAD, Heart Failure, High Cholesterol, Hypertension, Other (See Below) Other Cardiovascular History: parox SV tach Respiratory History: Reports: Asthma, COPD, Sleep Apnea, Other (See Below) Other Respiratory History: centrilobular emphysema Gastrointestinal History: Reports: Chronic Constipation, Colon Polyp, Diverticulosis, GERD, Other (See Below) Other Gastrointestinal History: lower gi bleed Genitourinary History: Reports: Chronic Renal Insuffiency Musculoskeletal History: Reports: Fibromyalgia, Other (See Below) Other Musculoskeletal History: lumbar DJD, disorder of bone or cartilage, carpal tunnel Neurological History: Reports: Other (See Below) (vascular dementia) Psychiatric History: Reports: Dementia, Depression, Hallucinations, Other (See Below) Other Psychiatric History: insomnia, situational stress Endocrine/Metabolic History: Reports: Hypothyroidism, Vitamin D Deficiency, Other (See Below) Other Endocrine/Metabolic History: enlarged lymph nodes, hypergycemia Hematologic History: Reports: B12 Deficiency, Iron Deficiency, Other (See Below) Other Hematologic History: leukocytosis, vit d deficiency, hypomagnesium Immunologic History: Reports: None Oncologic (Cancer) History: Reports: Thyroid Dermatologic History: Reports: None - Past Surgical History HEENT Surgical History: Reports: Eye Surgery GI Surgical History: Reports: Cholecystectomy, Hernia Repair/Other, Other (See Below) (hemicolectomy) Female Surgical History: Reports: Hysterectomy Endocrine Surgical History: Reports: Thyroidectomy Social & Family History - Family History Family Medical History: Noncontributory Cardiac: Reports: PA Endocrine/Metabolic: Reports: Diabetes, type II Oncologic: Reports: Breast, Ovarian - Caffeine Use Caffeine Use: Reports: Coffee, Soda - Living Situation & Occupation Living situation: Reports: , Extended Care Facility Occupation: Retired ED ROS GENERAL - Review of Systems Review Of Systems: See Below Constitutional: Reports: No Symptoms HEENT: Reports: No Symptoms Respiratory: Reports: Shortness of Breath, Cough Cardiovascular: Reports: No Symptoms Endocrine: Reports: No Symptoms GI/Abdominal: Reports: No Symptoms : Reports: No Symptoms Musculoskeletal: Reports: No Symptoms Skin: Reports: No Symptoms Neurological: Reports: No Symptoms Psychiatric: Reports: No Symptoms Hematologic/Lymphatic: Reports: No Symptoms Immunologic: Reports: No Symptoms ED EXAM, GENERAL - Physical Exam Exam: See Below Exam Limited By: No Limitations General Appearance: Alert, Moderate Distress Eye Exam: Bilateral Eye: EOMI, Normal Fundi, Normal Inspection, PERRL Throat/Mouth: Normal Inspection, Normal Lips, Normal Gums, Normal Oropharynx, Normal Voice, No Airway Compromise Head: Atraumatic, Normocephalic Neck: Normal Inspection, Supple, Non-Tender, Full Range of Motion Respiratory/Chest: Decreased Breath Sounds, Crackles, Rhonchi, Wheezing Cardiovascular: Normal Peripheral Pulses, Regular Rate, Rhythm, No Edema, No Gallop, No JVD, No Murmur, No Rub Peripheral Pulses: 4+: Radial (R) GI/Abdominal: Normal Bowel Sounds, Soft, Non-Tender, No Organomegaly, No Distention, No Mass (Female) Exam: Deferred Rectal (Female) Exam: Deferred Back Exam: Normal Inspection, Full Range of Motion, NT Extremities: Normal Inspection, Normal Range of Motion, Non-Tender, Normal Capillary Refill, No Pedal Edema Neurological: Alert, Oriented, CN II-XII Intact, Confused, Slow to Respond Psychiatric: Normal Affect, Normal Mood Skin Exam: Warm, Dry, Intact, Normal Color, No Rash Course - Vital Signs Last Recorded V/S: Last Vital Signs Temp 36.6 C 01/06/19 10:02 Pulse 92 01/06/19 10:02 Resp 20 01/06/19 10:02 BP 98/58 L 01/06/19 10:02 Pulse Ox 91 L 01/06/19 10:02 - Orders/Labs/Meds Orders: Active Orders 24 hr Category Date Time Status CULTURE BLOOD [BC] Stat Lab 01/06/19 09:05 Results CULTURE BLOOD [BC] Stat Lab 01/06/19 09:15 Received UA W/MICROSCOPIC [URIN] Stat Lab 01/06/19 08:50 Ordered Sodium Chloride 0.9% [Saline Flush] Med 01/06/19 08:46 Active 10 ml FLUSH ASDIRECTED PRN Blood Culture x2 Reflex Set [OM.PC] Stat Oth 01/06/19 08:48 Ordered Peripheral IV Insertion Adult [OM.PC] Routine Oth 01/06/19 08:47 Ordered Medication Orders Ceftriaxone Sodium (Rocephin) 2 gm IVPUSH DAILY LEXIE Doxycycline Hyclate (Vibramycin) 100 mg PO BID LEXIE Enoxaparin Sodium (Lovenox) 40 mg SUBCUT DAILY ON LICENSE OF [facility] Potassium Chloride/Sodium Chloride (Normal Saline With 20 Meq Kcl) 1,000 mls @ 100 mls/hr IV ASDIRECTED ELXIE Last Admin: 01/06/19 10:38 Dose: 100 mls/hr Sodium Chloride (Saline Flush) 10 ml FLUSH ASDIRECTED PRN PRN Reason: Keep Vein Open Labs: Laboratory Tests 01/06/19 01/06/19 01/06/19 Range/Units 09:05 09:05 09:05 WBC 29.4 H* (4.0-10.0) x10^3/uL RBC 4.47 (4.00-5.50) x10^6/uL Hgb 13.3 D (12.0-16.0) g/dL Hct 41.9 (33.0-47.0) % MCV 93.7 H (78.0-93.0) fL MCH 29.8 (26.0-32.0) pg MCHC 31.7 L (32.0-36.0) g/dL RDW Coeff of Christie 14.8 (10.0-15.0) % Plt Count 256 (130-400) x10^3/uL Add Manual Diff Yes Neutrophils % (Manual) 85 H (50-80) % Band Neutrophils % 5 (0-6) % Lymphocytes % (Manual) 9 L (25-50) % Monocytes % (Manual) 1 L (2-11) % Platelet Estimate Adequate PT 10.6 (9.6-11.4) SEC INR 1.0 L (2.0-3.5) Sodium 141 (136-145) mmol/L Potassium 3.7 (3.5-5.1) mmol/L Chloride 100 (98-107) mmol/L Carbon Dioxide 30 (21-32) mmol/L Anion Gap 14.7 (10-20) mmol/L BUN 24 H (7-18) mg/dL Creatinine 1.3 H (0.55-1.02) mg/dL Est Cr Clr Drug Dosing TNP Estimated GFR (MDRD) 39 Glucose 100 (74-106) mg/dL Lactic Acid (0.4-2.0) mmol/L Calcium 8.6 (8.5-10.1) mg/dL Corrected Calcium 9.56 (8.5-10.1) mg/dL Phosphorus 2.6 (2.6-4.7) mg/dL Magnesium 1.8 (1.8-2.4) mg/dL Total Bilirubin 0.6 (0.2-1.0) mg/dL AST 32 (15-37) U/L ALT 57 (14-59) U/L Alkaline Phosphatase 53 (46-116) U/L C-Reactive Protein 1.9 H (<=0.9) mg/dL Total Protein 6.7 (6.4-8.2) g/dL Albumin 2.8 L (3.4-5.0) g/dL Globulin 3.9 Albumin/Globulin Ratio 0.72 /05/20 Range/Units 09:05 WBC (4.0-10.0) x10^3/uL RBC (4.00-5.50) x10^6/uL Hgb (12.0-16.0) g/dL Hct (33.0-47.0) % MCV (78.0-93.0) fL MCH (26.0-32.0) pg MCHC (32.0-36.0) g/dL RDW Coeff of Christie (10.0-15.0) % Plt Count (130-400) x10^3/uL Add Manual Diff Neutrophils % (Manual) (50-80) % Band Neutrophils % (0-6) % Lymphocytes % (Manual) (25-50) % Monocytes % (Manual) (2-11) % Platelet Estimate PT (9.6-11.4) SEC INR (2.0-3.5) Sodium (136-145) mmol/L Potassium (3.5-5.1) mmol/L Chloride (98-107) mmol/L Carbon Dioxide (21-32) mmol/L Anion Gap (10-20) mmol/L BUN (7-18) mg/dL Creatinine (0.55-1.02) mg/dL Est Cr Clr Drug Dosing Estimated GFR (MDRD) Glucose (74-106) mg/dL Lactic Acid 2.3 H* (0.4-2.0) mmol/L Calcium (8.5-10.1) mg/dL Corrected Calcium (8.5-10.1) mg/dL Phosphorus (2.6-4.7) mg/dL Magnesium (1.8-2.4) mg/dL Total Bilirubin (0.2-1.0) mg/dL AST (15-37) U/L ALT (14-59) U/L Alkaline Phosphatase (46-116) U/L C-Reactive Protein (<=0.9) mg/dL Total Protein (6.4-8.2) g/dL Albumin (3.4-5.0) g/dL Globulin Albumin/Globulin Ratio Meds: Medications Generic Name Dose Route Start Last Admin Trade Name Concepcion PRN Reason Stop Dose Admin Ceftriaxone Sodium 2 gm 01/07/19 08:00 Rocephin IVPUSH DAILY LEXIE Doxycycline Hyclate 100 mg 01/06/19 20:00 Vibramycin PO BID LEXIE Enoxaparin Sodium 40 mg 01/06/19 11:00 Lovenox SUBCUT DAILY LEXIE Potassium Chloride/Sodium Chloride 1,000 mls @ 100 mls/hr 01/06/19 10:15 05/20 10:38 Normal Saline With 20 Meq Kcl IV 100 mls/hr ASDIRECTED LEXIE Administration Sodium Chloride 10 ml 01/06/19 08:46 Saline Flush FLUSH ASDIRECTED PRN Keep Vein Open Discontinued Medications Generic Name Dose Route Start Last Admin Trade Name Concepcion PRN Reason Stop Dose Admin Ceftriaxone Sodium 2 gm 01/06/19 09:11 01/06/19 09:20 Rocephin IVPUSH 01/06/19 09:12 2 gm STAT ONE Administration Doxycycline Hyclate 100 mg 01/06/19 09:32 01/06/19 09:38 Vibramycin PO 01/06/19 09:33 100 mg ONETIME ONE Administration Departure - Departure Time of Disposition: 10:30 Disposition: Refer to Observation Clinical Impression: Pneumonia, Sepsis - Discharge Information - Problem List Review Problem List Initiated/Reviewed/Updated: Yes - My Orders Last 24 Hours: My Active Orders 01/06/19 08:46 Sodium Chloride 0.9% [Saline Flush] 10 ml FLUSH ASDIRECTED PRN 01/06/19 08:47 Peripheral IV Insertion Adult [OM.PC] Routine 01/06/19 08:48 Blood Culture x2 Reflex Set [OM.PC] Stat 01/06/19 08:50 UA W/MICROSCOPIC [URIN] Stat 01/06/19 09:05 CULTURE BLOOD [BC] Stat 01/06/19 09:15 CULTURE BLOOD [BC] Stat - Assessment/Plan Last 24 Hours: My Active Orders 01/06/19 08:46 Sodium Chloride 0.9% [Saline Flush] 10 ml FLUSH ASDIRECTED PRN 01/06/19 08:47 Peripheral IV Insertion Adult [OM.PC] Routine 01/06/19 08:48 Blood Culture x2 Reflex Set [OM.PC] Stat 01/06/19 08:50 UA W/MICROSCOPIC [URIN] Stat 01/06/19 09:05 CULTURE BLOOD [] Stat 01/06/19 09:15 CULTURE BLOOD [] Stat Plan: Admit observation. She is a code 2, no intubation, no CPR. Will continue with IV rocephin and oral doxycycline instead of azithromycin-she is at risk for QT prolongation due to numerous daily medication interactions. Continue O2. Will recheck her lactic acid in 6 hours. She will be discharged back to the [facility] once her O2 sat is above 90% on RA and her lactic acid is normalized. Will start NS with 20meq KCL at 100ml hour.
[2019-01-06] MEDS ORDERED: Doxycycline 100 MG Cap PO ONE (09:32)
--- NOTE | 2019-01-06 09:34 | CR ---
[id number] RAD/RAD Chest PA or AP 1V EXAM: RAD Chest PA or AP 1V INDICATION: CHEST PAIN. COMPARISON: March 2018. DISCUSSION: Cardiomegaly and central vascular congestion with small bilateral effusions and parenchymal opacities. Findings are most consistent with sequela of CHF exacerbation. Correlate for clinical signs of infection, as bibasal pneumonia is also possible. IMPRESSION: As above. Poncho Loco MD 01/06/19 0931 Thank you for allowing us to participate in the care of your patient.
[2019-01-06 09:57] LABS: CHLORIDE,CL 100 mmol/L (98-107); SODIUM,NA 141 mmol/L (136-145)
[2019-01-06 09:58] LABS: ANION GAP 14.7 mmol/L (10-20)
[2019-01-06] MEDS: NS + KCl 20mEq/L 1,000 ML IV SCH ×2 (10:38→20:40)
[2019-01-06] MEDS ORDERED: Acetaminophen 325 MG Tab PO PRN (12:54)
[2019-01-06] MEDS ORDERED: Albuterol 0.083% 2.5 MG/3 ML Neb Soln INH PRN (12:54)
[2019-01-06] MEDS: Albuterol/Ipratropium 3.0-0.5 MG/3 ML Neb Soln NEB SCH ×2 (13:34→18:14)
[2019-01-06] MEDS: Enoxaparin 30 MG/0.3 ML Syringe SUBCUT SCH (13:34)
[2019-01-06] MEDS: guaiFENesin 600 MG Tab.ER PO SCH (19:57)
[2019-01-06] MEDS: Donepezil 10 MG Tab PO SCH (19:57)
[2019-01-06] MEDS: Doxycycline 100 MG Cap PO SCH (19:57)
[2019-01-06] MEDS ORDERED: Simvastatin 40 MG Tab PO SCH (20:00)
[2019-01-06] MEDS ORDERED: traZODone 50 MG Tab PO SCH (20:00)
[2019-01-06] MEDS ORDERED: guaiFENesin 600 MG Tab.ER PO SCH (20:00)
[2019-01-06] MEDS ORDERED: Gabapentin 300 MG Cap PO SCH (20:00)
[2019-01-06] MEDS ORDERED: Montelukast 10 MG Tab PO SCH (20:00)
[2019-01-07] MEDS: Albuterol/Ipratropium 3.0-0.5 MG/3 ML Neb Soln NEB SCH ×2 (02:42→07:18)
[2019-01-07] MEDS: NS + KCl 20mEq/L 1,000 ML IV SCH (06:27)
[2019-01-07] MEDS ORDERED: Levothyroxine 88 MCG Tab PO SCH (07:00)
[2019-01-07] MEDS ORDERED: Omeprazole 20 MG Cap.CR PO SCH (07:00)
[2019-01-07] MEDS: Enoxaparin 30 MG/0.3 ML Syringe SUBCUT SCH (07:54)
[2019-01-07] MEDS: Doxycycline 100 MG Cap PO SCH (07:55)
[2019-01-07] MEDS: Donepezil 10 MG Tab PO SCH (07:55)
[2019-01-07] MEDS: guaiFENesin 600 MG Tab.ER PO SCH (07:56)
[2019-01-07] MEDS ORDERED: Cholecalciferol (Vitamin D3) 1,000 Unit Tab PO SCH (08:00)
[2019-01-07] MEDS ORDERED: Potassium Chloride 10 MEQ Tab.ER PO SCH (08:00)
[2019-01-07] MEDS ORDERED: Venlafaxine 150 MG Cap.ER PO SCH (08:00)
[2019-01-07] MEDS ORDERED: Metoprolol Succinate 50 MG Tab.ER PO SCH (08:00)
[2019-01-07] MEDS ORDERED: BREO ELLIPTA PO SCH (08:00)
[2019-01-07] MEDS ORDERED: Furosemide 40 MG Tab PO SCH (08:00)
[2019-01-07] MEDS ORDERED: predniSONE 20 MG Tab PO SCH (08:00)
[2019-01-07] MEDS ORDERED: Docusate Sodium 100 MG Cap PO SCH (08:00)
[2019-01-07] MEDS ORDERED: Cyanocobalamin (Vitamin B12) 1,000 MCG Tab PO SCH (08:00)
[2019-01-07] MEDS ORDERED: Venlafaxine 75 MG Cap.ER PO SCH (08:00)
[2019-01-07] MEDS ORDERED: ARIPIPRAZOLE 5 MG PO SCH (08:00)
[2019-01-07] MEDS ORDERED: cefTRIAXone 2 GM Vial IVPUSH SCH (08:00)
[2019-01-07] MEDS ORDERED: Magnesium Oxide 400 MG Tab PO SCH (08:00)
--- NOTE | 2019-01-07 09:17 | PCM.PN ---
- General Info Date of Service: 01/07/19 Subjective Update: Pt. states that she feels about the same but states that she had a good night. She states that she is not overly short of breath. T max since admission was 37.8. Her cough is more productive and loose today. She did have breakfast this AM. She is still on O2 at 3L/min. Her O2 sats are still in the low 90s. 6 hour lactic acid was down to 2.1 from 2.3. This AM her lactic acid was 1.3. Functional Status: Reports: Pain Controlled - Review of Systems General: Reports: No Symptoms HEENT: Reports: No Symptoms Pulmonary: Reports: Shortness of Breath, Cough, Sputum Cardiovascular: Reports: No Symptoms Gastrointestinal: Reports: No Symptoms Genitourinary: Reports: No Symptoms Musculoskeletal: Reports: No Symptoms Skin: Reports: Pallor Neurological: Reports: No Symptoms Psychiatric: Reports: No Symptoms - Patient Data Vitals - Most Recent: Last Vital Signs Temp 37.2 C 01/07/19 05:10 Pulse 95 01/07/19 07:55 Resp 22 H 01/07/19 05:10 BP 133/65 01/07/19 07:55 Pulse Ox 91 L 01/07/19 07:21 Weight - Most Recent: 86.545 kg I&O - Last 24 Hours: Intake & Output 01/06/19 01/07/19 01/07/19 22:59 06:59 14:59 Intake Total 240 200 240 Output Total 125 450 Balance 115 -250 240 Lab Results Last 24 Hours: Laboratory Results - last 24 hr 01/06/19 01/06/19 01/06/19 Range/Units 09:05 09:05 09:05 WBC 29.4 H* (4.0-10.0) x10^3/uL RBC 4.47 (4.00-5.50) x10^6/uL Hgb 13.3 D (12.0-16.0) g/dL Hct 41.9 (33.0-47.0) % MCV 93.7 H (78.0-93.0) fL MCH 29.8 (26.0-32.0) pg MCHC 31.7 L (32.0-36.0) g/dL RDW Coeff of Christie 14.8 (10.0-15.0) % Plt Count 256 (130-400) x10^3/uL Add Manual Diff Yes Neutrophils % (Manual) 85 H (50-80) % Band Neutrophils % 5 (0-6) % Lymphocytes % (Manual) 9 L (25-50) % Monocytes % (Manual) 1 L (2-11) % Platelet Estimate Adequate PT 10.6 (9.6-11.4) SEC INR 1.0 L (2.0-3.5) Sodium 141 (136-145) mmol/L Potassium 3.7 (3.5-5.1) mmol/L Chloride 100 (98-107) mmol/L Carbon Dioxide 30 (21-32) mmol/L Anion Gap 14.7 (10-20) mmol/L BUN 24 H (7-18) mg/dL Creatinine 1.3 H (0.55-1.02) mg/dL Est Cr Clr Drug Dosing TNP Estimated GFR (MDRD) 39 Glucose 100 (74-106) mg/dL Lactic Acid (0.4-2.0) mmol/L Calcium 8.6 (8.5-10.1) mg/dL Corrected Calcium 9.56 (8.5-10.1) mg/dL Phosphorus 2.6 (2.6-4.7) mg/dL Magnesium 1.8 (1.8-2.4) mg/dL Total Bilirubin 0.6 (0.2-1.0) mg/dL AST 32 (15-37) U/L ALT 57 (14-59) U/L Alkaline Phosphatase 53 (46-116) U/L C-Reactive Protein 1.9 H (<=0.9) mg/dL Total Protein 6.7 (6.4-8.2) g/dL Albumin 2.8 L (3.4-5.0) g/dL Globulin 3.9 Albumin/Globulin Ratio 0.72 Urine Color (YELLOW) Urine Appearance (CLEAR) Urine pH (5.0-8.0) Ur Specific [place] Urine Protein (NEGATIVE) mg/dL Urine Glucose (UA) (NEGATIVE) mg/dL Urine Ketones (NEGATIVE) mg/dL Urine Occult Blood (NEGATIVE) Urine Nitrite (NEGATIVE) Urine Bilirubin (NEGATIVE) Urine Urobilinogen (0.2) EU/dL Ur Leukocyte Esterase (NEGATIVE) Urine RBC (NOT SEEN) /HPF Urine WBC (NOT SEEN) /HPF Ur Squamous Epith Cells (NEGATIVE) /HPF Urine Bacteria (NEGATIVE) /HPF Urine Mucus (NEGATIVE) /LPF 01/06/19 01/06/19 01/06/19 Range/Units 09:05 13:40 18:14 WBC (4.0-10.0) x10^3/uL RBC (4.00-5.50) x10^6/uL Hgb (12.0-16.0) g/dL Hct (33.0-47.0) % MCV (78.0-93.0) fL MCH (26.0-32.0) pg MCHC (32.0-36.0) g/dL RDW Coeff of Christie (10.0-15.0) % Plt Count (130-400) x10^3/uL Add Manual Diff Neutrophils % (Manual) (50-80) % Band Neutrophils % (0-6) % Lymphocytes % (Manual) (25-50) % Monocytes % (Manual) (2-11) % Platelet Estimate PT (9.6-11.4) SEC INR (2.0-3.5) Sodium (136-145) mmol/L Potassium (3.5-5.1) mmol/L Chloride (98-107) mmol/L Carbon Dioxide (21-32) mmol/L Anion Gap (10-20) mmol/L BUN (7-18) mg/dL Creatinine (0.55-1.02) mg/dL Est Cr Clr Drug Dosing Estimated GFR (MDRD) Glucose (74-106) mg/dL Lactic Acid 2.3 H* 2.1 H* (0.4-2.0) mmol/L Calcium (8.5-10.1) mg/dL Corrected Calcium (8.5-10.1) mg/dL Phosphorus (2.6-4.7) mg/dL Magnesium (1.8-2.4) mg/dL Total Bilirubin (0.2-1.0) mg/dL AST (15-37) U/L ALT (14-59) U/L Alkaline Phosphatase (46-116) U/L C-Reactive Protein (<=0.9) mg/dL Total Protein (6.4-8.2) g/dL Albumin (3.4-5.0) g/dL Globulin Albumin/Globulin Ratio Urine Color Yellow (YELLOW) Urine Appearance Clear (CLEAR) Urine pH 6.0 (5.0-8.0) Ur Specific [place] 1.025 Urine Protein Negative (NEGATIVE) mg/dL Urine Glucose (UA) Negative (NEGATIVE) mg/dL Urine Ketones Negative (NEGATIVE) mg/dL Urine Occult Blood Negative (NEGATIVE) Urine Nitrite Negative (NEGATIVE) Urine Bilirubin Negative (NEGATIVE) Urine Urobilinogen 0.2 (0.2) EU/dL Ur Leukocyte Esterase Negative (NEGATIVE) Urine RBC 0-5 (NOT SEEN) /HPF Urine WBC 0-5 (NOT SEEN) /HPF Ur Squamous Epith Cells Rare (NEGATIVE) /HPF Urine Bacteria Rare (NEGATIVE) /HPF Urine Mucus Rare H (NEGATIVE) /LPF 01/07/19 01/07/19 Range/Units 07:00 08:02 WBC 34.1 H* (4.0-10.0) x10^3/uL RBC 4.05 (4.00-5.50) x10^6/uL Hgb 12.0 (12.0-16.0) g/dL Hct 38.9 (33.0-47.0) % MCV 96.0 H (78.0-93.0) fL MCH 29.6 (26.0-32.0) pg MCHC 30.8 L (32.0-36.0) g/dL RDW Coeff of Christie 14.9 (10.0-15.0) % Plt Count 230 (130-400) x10^3/uL Add Manual Diff Neutrophils % (Manual) (50-80) % Band Neutrophils % (0-6) % Lymphocytes % (Manual) (25-50) % Monocytes % (Manual) (2-11) % Platelet Estimate PT (9.6-11.4) SEC INR (2.0-3.5) Sodium (136-145) mmol/L Potassium (3.5-5.1) mmol/L Chloride (98-107) mmol/L Carbon Dioxide (21-32) mmol/L Anion Gap (10-20) mmol/L BUN (7-18) mg/dL Creatinine (0.55-1.02) mg/dL Est Cr Clr Drug Dosing Estimated GFR (MDRD) Glucose (74-106) mg/dL Lactic Acid 1.3 (0.4-2.0) mmol/L Calcium (8.5-10.1) mg/dL Corrected Calcium (8.5-10.1) mg/dL Phosphorus (2.6-4.7) mg/dL Magnesium (1.8-2.4) mg/dL Total Bilirubin (0.2-1.0) mg/dL AST (15-37) U/L ALT (14-59) U/L Alkaline Phosphatase (46-116) U/L C-Reactive Protein (<=0.9) mg/dL Total Protein (6.4-8.2) g/dL Albumin (3.4-5.0) g/dL Globulin Albumin/Globulin Ratio Urine Color (YELLOW) Urine Appearance (CLEAR) Urine pH (5.0-8.0) Ur Specific [place] Urine Protein (NEGATIVE) mg/dL Urine Glucose (UA) (NEGATIVE) mg/dL Urine Ketones (NEGATIVE) mg/dL Urine Occult Blood (NEGATIVE) Urine Nitrite (NEGATIVE) Urine Bilirubin (NEGATIVE) Urine Urobilinogen (0.2) EU/dL Ur Leukocyte Esterase (NEGATIVE) Urine RBC (NOT SEEN) /HPF Urine WBC (NOT SEEN) /HPF Ur Squamous Epith Cells (NEGATIVE) /HPF Urine Bacteria (NEGATIVE) /HPF Urine Mucus (NEGATIVE) /LPF Eric Results Last 24 Hours: Microbiology 01/06/19 09:58 MRSA Surveillance Culture - Final Nares, Left NO MRSA ISOLATED 01/06/19 08:48 Influenza Type A Antigen Screen - Final Nasal, Unspecified NEGATIVE INFLUENZA A VIRUS AG Influenza Type B Antigen Screen - Final NEGATIVE INFLUENZA B VIRUS AG 01/06/19 09:05 Anaerobic Blood Culture - Final Blood - Venous Med Orders - Current: Current Medications Acetaminophen (Tylenol) 650 mg PO Q4H PRN PRN Reason: Pain Albuterol (Proventil Neb Soln) 2.5 mg INH Q4H PRN PRN Reason: Shortness of Breath Albuterol/Ipratropium (Duoneb 3.0-0.5 Mg/3 Ml) 3 ml NEB Q6HRRT [facility] Last Admin: 01/07/19 07:18 Dose: 3 ml Aripiprazole (Abilify) 5 mg PO DAILY [facility] Last Admin: 01/07/19 07:55 Dose: 5 mg Ceftriaxone Sodium (Rocephin) 2 gm IVPUSH DAILY [facility] Last Admin: 01/07/19 07:54 Dose: 2 gm Cholecalciferol (Vitamin D3) 4,000 units PO DAILY [facility] Last Admin: 01/07/19 07:55 Dose: 4,000 units Cyanocobalamin (Vitamin B12) 1,000 mcg PO DAILY [facility] Last Admin: 01/07/19 07:55 Dose: 1,000 mcg Docusate Sodium (Colace) 100 mg PO DAILY [facility] Last Admin: 01/07/19 07:55 Dose: 100 mg Donepezil HCl (Aricept) 10 mg PO BID [facility] Last Admin: 01/07/19 07:55 Dose: 10 mg Doxycycline Hyclate (Vibramycin) 100 mg PO BID [facility] Last Admin: 01/07/19 07:55 Dose: 100 mg Enoxaparin Sodium (Lovenox) 30 mg SUBCUT DAILY [facility] Last Admin: 01/07/19 07:54 Dose: 30 mg Furosemide (Lasix) 40 mg PO DAILY [facility] Last Admin: 01/07/19 07:55 Dose: 40 mg Gabapentin (Neurontin) 300 mg PO BEDTIME [facility] Last Admin: 01/06/19 19:57 Dose: 300 mg Guaifenesin (Mucinex) 600 mg PO BID [facility] Stop: 01/11/19 20:01 Last Admin: 01/07/19 07:56 Dose: 600 mg Guaifenesin (Mucinex) 600 mg PO BID PRN PRN Reason: chest congestion Potassium Chloride/Sodium Chloride (Normal Saline With 20 Meq Kcl) 1,000 mls @ 100 mls/hr IV ASDIRECTED [facility] Last Admin: 01/07/19 06:27 Dose: 100 mls/hr Levothyroxine Sodium (Synthroid) 88 mcg PO ACBREAKFAST [facility] Last Admin: 01/07/19 08:02 Dose: 88 mcg Magnesium Oxide (Magnesium Oxide) 400 mg PO DAILY [facility] Last Admin: 01/07/19 07:55 Dose: 400 mg Metoprolol Succinate (Toprol Xl) 50 mg PO DAILY [facility] Last Admin: 01/07/19 07:55 Dose: 50 mg Montelukast Sodium (Singulair) 10 mg PO BEDTIME [facility] Last Admin: 01/06/19 19:57 Dose: 10 mg Breo Ellipta 200-25 (Mcg Inh Own Med) 1 inh PO DAILY [facility] Last Admin: 01/07/19 07:57 Dose: 1 inh Omeprazole (Omeprazole) 40 mg PO ACBREAKFAST [facility] Last Admin: 01/07/19 08:02 Dose: 40 mg Potassium Chloride (Klor-Con 10) 10 meq PO DAILY [facility] Last Admin: 01/07/19 07:55 Dose: 10 meq Prednisone (Prednisone) 10 mg PO DAILY [facility] Stop: 01/10/19 08:01 Simvastatin (Zocor) 40 mg PO BEDTIME [facility] Last Admin: 01/06/19 19:57 Dose: 40 mg Sodium Chloride (Saline Flush) 10 ml FLUSH ASDIRECTED PRN PRN Reason: Keep Vein Open Trazodone HCl (Trazodone) 100 mg PO BEDTIME [facility] Last Admin: 01/06/19 19:57 Dose: 100 mg Venlafaxine HCl (Effexor Xr) 75 mg PO DAILY [facility] Last Admin: 01/07/19 07:55 Dose: 75 mg Venlafaxine HCl (Effexor Xr) 150 mg PO DAILY [facility] Last Admin: 01/07/19 07:55 Dose: 150 mg Discontinued Medications Ceftriaxone Sodium (Rocephin) 2 gm IVPUSH STAT ONE Stop: 01/06/19 09:12 Last Admin: 01/06/19 09:20 Dose: 2 gm Doxycycline Hyclate (Vibramycin) 100 mg PO ONETIME ONE Stop: 01/06/19 09:33 Last Admin: 01/06/19 09:38 Dose: 100 mg Prednisone (Prednisone) 20 mg PO DAILY [facility] Stop: 01/07/19 08:01 Last Admin: 01/07/19 07:55 Dose: 20 mg - Exam Quality Assessment: Supplemental Oxygen General: Alert, Oriented HEENT: Pupils Equal, Pupils Reactive, EOMI, Mucous Membr. Moist/[place] Neck: Supple Lungs: Rales, Rhonchi, Wheezing Cardiovascular: Regular Rate, Regular Rhythm GI/Abdominal Exam: Normal Bowel Sounds, Soft, Non-Tender, No Organomegaly, No Distention (Female) Exam: Deferred Back Exam: Normal Inspection, Full Range of Motion Extremities: Normal Inspection, Normal Range of Motion, Non-Tender, No Pedal Edema Skin: Warm, Dry Wound/Incisions: Healing Well Psy/Mental Status: Alert, Normal Affect, Normal Mood - Problem List Review Problem List Initiated/Reviewed/Updated: Yes - My Orders Last 24 Hours: My Active Orders 01/06/19 08:46 Sodium Chloride 0.9% [Saline Flush] 10 ml FLUSH ASDIRECTED PRN 01/06/19 08:47 Peripheral IV Insertion Adult [OM.PC] Routine 01/06/19 08:48 Blood Culture x2 Reflex Set [OM.PC] Stat 01/06/19 09:05 CULTURE BLOOD [BC] Stat 01/06/19 09:15 CULTURE BLOOD [BC] Stat 01/06/19 09:39 Patient Status [ADT] Routine 01/06/19 10:02 Intake and Output [RC] 06,18 Oxygen Therapy [RC] 08,20 Up With Assistance [RC] 08,20 VTE/DVT Education [RC] .PRN Vital Signs [RC] 06,10,14,18,22,02 01/06/19 10:03 Code Status [Resuscitation Status] Routine 01/06/19 10:07 Dietary Supplements [RC] 07,11,17 01/06/19 10:15 NS + KCl 20mEq/L [Normal Saline with 20 mEq KCl] 1,000 ml IV ASDIRECTED 01/06/19 12:54 Acetaminophen [Tylenol] 650 mg PO Q4H PRN Albuterol [Proventil Neb Soln] 2.5 mg INH Q4H PRN 01/06/19 13:00 Albuterol/Ipratropium [DuoNeb 3.0-0.5 MG/3 ML] 3 ml NEB Q6HRRT 01/06/19 13:15 Enoxaparin [Lovenox] 30 mg SUBCUT DAILY 01/06/19 20:00 Donepezil [Aricept] 10 mg PO BID Doxycycline [Vibramycin] 100 mg PO BID Gabapentin [Neurontin] 300 mg PO BEDTIME Montelukast [Singulair] 10 mg PO BEDTIME Simvastatin [Zocor] 40 mg PO BEDTIME guaiFENesin [Mucinex] 600 mg PO BID traZODone 100 mg PO BEDTIME 01/06/19 Lunch Regular Diet [DIET] 01/07/19 07:00 Levothyroxine [Synthroid] 88 mcg PO ACBREAKFAST Omeprazole 40 mg PO ACBREAKFAST 01/07/19 08:00 ARIPiprazole [Abilify] 5 mg PO DAILY Cholecalciferol (Vitamin D3) [Vitamin D3] 4,000 units PO DAILY Cyanocobalamin (Vitamin B12) [Vitamin B12] 1,000 mcg PO DAILY Docusate Sodium [Colace] 100 mg PO DAILY Fluticasone/Vilanterol [Breo Ellipta 200-25 Mcg INH] 1 inh PO DAILY Furosemide [Lasix] 40 mg PO DAILY Magnesium Oxide 400 mg PO DAILY Metoprolol Succinate [Toprol XL] 50 mg PO DAILY Potassium Chloride [Klor-Con 10] 10 meq PO DAILY Venlafaxine [Effexor XR] 150 mg PO DAILY Venlafaxine [Effexor XR] 75 mg PO DAILY cefTRIAXone [Rocephin] 2 gm IVPUSH DAILY 01/07/19 09:07 Chest 1V Frontal [CR] Stat 01/08/19 08:00 predniSONE 10 mg PO DAILY 01/10/19 07:00 CBC W/O DIFF,HEMOGRAM [HEME] Q3D 01/12/19 06:00 guaiFENesin [Mucinex] 600 mg PO BID PRN 01/13/19 07:00 CBC W/O DIFF,HEMOGRAM [HEME] Q3D 01/16/19 07:00 CBC W/O DIFF,HEMOGRAM [HEME] Q3D 01/19/19 07:00 CBC W/O DIFF,HEMOGRAM [HEME] Q3D 01/22/19 07:00 CBC W/O DIFF,HEMOGRAM [HEME] Q3D 01/25/19 07:00 CBC W/O DIFF,HEMOGRAM [HEME] Q3D - Plan Plan:: Contacted Dr. Lebron regarding acute admission. She feels that the patient should be transferred due to her extended illness and multiple courses of antibiotics over the past 2 months. I spoke with Dr. Jean who accepts that patient in transfer. She will be started on Zosyn 3.375gm IV for transfer. Will contact family and discuss plan to transfer.
[2019-01-07] MEDS ORDERED: Piperacillin/Tazobactam 3.375 GM in Sodium Chloride 0.9% 100 ML IV ONE (09:30)
--- NOTE | 2019-01-07 09:51 | PCM.DCSUM1 ---
Discharge Summary - Hospital Course Free Text/Narrative:: Pt. was admitted 01/06/19 with bilateral healthcare acquired pneumonia. Pt. has been on numerous courses of antibiotics over the past 2 months, including doxycycline, azithromycin, and most recently, a 7 day course of augmentin for "bronchitis". She stopped taking the antibiotic on 01/04/19 and over the past 2 days developed increased cough and chest congestion. She was started on IV rocephin and oral doxycycline yesterday, given her recent improvement on augmentin. Her influenza was negative. Pt. did have a mildly elevated lactic acid yesterday at 2.3. Her 6 hour lactic acid was down to 2.1 and this AM was down to 1.3. Pt. states that she is feeling "about the same". Her cough is more loose. T max in past 24 hours was 37.8. Her WBC was elevated to 34.1 from 29.1. Repeat chest x-ray is pending. Pt. continues to be hypoxic and is on O2 per NC at 3L/min. and maintaining O2 sats in the low 90% range. Pt. complains of continued fatigue but "feels about the same". She did eat breakfast this AM. Dr. Lebron was contacted regarding admission to acute status and she felt that the patient should be transferred for and requires an ID consult. Diagnosis: Stroke: No Modified Harper Scale: No Symptoms at All Modified Harper Scale Score: 0 - Discharge Data Discharge Date: 01/07/19 Discharge Disposition: DC/Tfer to Acute Hospital 02 Condition: Good - Discharge Diagnosis/Problem(s) (1) Healthcare associated bacterial pneumonia SNOMED Code(s): 133968627 ICD Code: J15.9 - UNSPECIFIED BACTERIAL PNEUMONIA Status: Acute Current Visit: Yes - Discharge Plan Home Medications: Home Meds Acetaminophen [Tylenol] 650 mg PO Q4H PRN MDD 3000 mg 01/21/14 [History] Furosemide [Lasix] 40 mg PO DAILY 01/21/14 [History] Gabapentin [Neurontin] 300 mg PO BEDTIME 01/21/14 [History] Venlafaxine [Effexor XR] 75 mg PO DAILY 01/21/14 [History] Donepezil [Aricept] 10 mg PO BID 09/22/15 [History] Meloxicam 7.5 mg PO DAILY 09/22/15 [History] Potassium Chloride [Klor-Con M10] 10 meq PO DAILY 09/22/15 [History] Albuterol Sulfate [Ventolin Hfa] 2 inh PO Q4H PRN 03/05/18 [History] Cholecalciferol (Vitamin D3) [Vitamin D3] 4,000 unit PO DAILY 03/05/18 [History] Cyanocobalamin (Vitamin B12) [Vitamin B12] 1,000 mcg PO DAILY 03/05/18 [History] Docusate Sodium [Colace] 100 mg PO DAILY 03/05/18 [History] Fluticasone/Vilanterol [Breo Ellipta 200-25 Mcg INH] 1 inh PO DAILY 03/05/18 [ History] Magnesium Oxide [Magnesium] 400 mg PO DAILY 03/05/18 [History] Omeprazole 40 mg PO DAILY 03/05/18 [History] Polyethylene Glycol 3350 [MiraLAX] 17 gram PO DAILY PRN 03/05/18 [History] Simvastatin 40 mg PO BEDTIME 03/05/18 [History] Venlafaxine HCl [Venlafaxine ER] 150 mg PO DAILY 03/05/18 [History] guaiFENesin [Mucinex] 600 mg PO BID 03/05/18 [History] traZODone HCl [Trazodone HCl] 100 mg PO BEDTIME 03/05/18 [History] Montelukast [Singulair] 10 mg PO BEDTIME #30 tablet 03/09/18 [Rx] ARIPiprazole [Aripiprazole] 5 mg PO DAILY 01/06/19 [History] Albuterol/Ipratropium [DuoNeb 3.0-0.5 MG/3 ML] 3 ml NEB Q6HRRT 01/06/19 [History ] Levothyroxine [Synthroid] 88 mcg PO ACBREAKFAST 01/06/19 [History] Metoprolol Succinate 50 mg PO DAILY 01/06/19 [History] Naproxen Sodium 220 mg PO Q12H PRN 01/06/19 [History] predniSONE 0 dose PO DAILY 01/06/19 [History] Oxygen Therapy Mode: Nasal Cannula Forms: ED Department Discharge, Interfacility Transfer EMTALA Referrals: Yumiko Lebron MD [Primary Care Provider] - - Discharge Summary/Plan Comment DC Time >30 min.: Yes Discharge Summary/Plan Comment: Pt. will be transferred to [facility] in [place]. Dr. Jean accepts the patient in transfer. Pt. was started on Zosyn 3.375gm IV for transport. Images will be pushed to [facility] in [place]. She is a code 2-no intubation/no resuscitation. She will be transported via [facility] ground ambulance. - General Info Date of Service: 01/07/19 Functional Status: Reports: Pain Controlled - Review of Systems General: Reports: No Symptoms HEENT: Reports: No Symptoms Pulmonary: Reports: Shortness of Breath, Cough, Wheezing Cardiovascular: Reports: No Symptoms Gastrointestinal: Reports: No Symptoms Genitourinary: Reports: No Symptoms Musculoskeletal: Reports: No Symptoms Skin: Reports: No Symptoms Neurological: Reports: No Symptoms Psychiatric: Reports: No Symptoms - Patient Data Vitals - Most Recent: Last Vital Signs Temp 37.2 C 01/07/19 05:10 Pulse 95 01/07/19 07:55 Resp 22 H 01/07/19 05:10 BP 133/65 01/07/19 07:55 Pulse Ox 91 L 01/07/19 07:21 Weight - Most Recent: 86.545 kg I&O - Last 24 hours: Intake & Output 01/06/19 01/07/19 01/07/19 22:59 06:59 14:59 Intake Total 240 200 240 Output Total 125 450 Balance 115 -250 240 Lab Results - Last 24 hrs: Laboratory Results - last 24 hr 01/06/19 01/06/19 01/06/19 Range/Units 09:05 09:05 09:05 WBC (4.0-10.0) x10^3/uL RBC (4.00-5.50) x10^6/uL Hgb (12.0-16.0) g/dL Hct (33.0-47.0) % MCV (78.0-93.0) fL MCH (26.0-32.0) pg MCHC (32.0-36.0) g/dL RDW Coeff of Christie (10.0-15.0) % Plt Count (130-400) x10^3/uL Neutrophils % (Manual) 85 H (50-80) % Band Neutrophils % 5 (0-6) % Lymphocytes % (Manual) 9 L (25-50) % Monocytes % (Manual) 1 L (2-11) % Platelet Estimate Adequate Sodium 141 (136-145) mmol/L Potassium 3.7 (3.5-5.1) mmol/L Chloride 100 (98-107) mmol/L Carbon Dioxide 30 (21-32) mmol/L Anion Gap 14.7 (10-20) mmol/L BUN 24 H (7-18) mg/dL Creatinine 1.3 H (0.55-1.02) mg/dL Est Cr Clr Drug Dosing TNP Estimated GFR (MDRD) 39 Glucose 100 (74-106) mg/dL Lactic Acid 2.3 H* (0.4-2.0) mmol/L Calcium 8.6 (8.5-10.1) mg/dL Corrected Calcium 9.56 (8.5-10.1) mg/dL Phosphorus 2.6 (2.6-4.7) mg/dL Magnesium 1.8 (1.8-2.4) mg/dL Total Bilirubin 0.6 (0.2-1.0) mg/dL AST 32 (15-37) U/L ALT 57 (14-59) U/L Alkaline Phosphatase 53 (46-116) U/L C-Reactive Protein 1.9 H (<=0.9) mg/dL Total Protein 6.7 (6.4-8.2) g/dL Albumin 2.8 L (3.4-5.0) g/dL Globulin 3.9 Albumin/Globulin Ratio 0.72 Urine Color (YELLOW) Urine Appearance (CLEAR) Urine pH (5.0-8.0) Ur Specific [place] Urine Protein (NEGATIVE) mg/dL Urine Glucose (UA) (NEGATIVE) mg/dL Urine Ketones (NEGATIVE) mg/dL Urine Occult Blood (NEGATIVE) Urine Nitrite (NEGATIVE) Urine Bilirubin (NEGATIVE) Urine Urobilinogen (0.2) EU/dL Ur Leukocyte Esterase (NEGATIVE) Urine RBC (NOT SEEN) /HPF Urine WBC (NOT SEEN) /HPF Ur Squamous Epith Cells (NEGATIVE) /HPF Urine Bacteria (NEGATIVE) /HPF Urine Mucus (NEGATIVE) /LPF 01/06/19 01/06/19 01/07/19 Range/Units 13:40 18:14 07:00 WBC 34.1 H* (4.0-10.0) x10^3/uL RBC 4.05 (4.00-5.50) x10^6/uL Hgb 12.0 (12.0-16.0) g/dL Hct 38.9 (33.0-47.0) % MCV 96.0 H (78.0-93.0) fL MCH 29.6 (26.0-32.0) pg MCHC 30.8 L (32.0-36.0) g/dL RDW Coeff of Christie 14.9 (10.0-15.0) % Plt Count 230 (130-400) x10^3/uL Neutrophils % (Manual) (50-80) % Band Neutrophils % (0-6) % Lymphocytes % (Manual) (25-50) % Monocytes % (Manual) (2-11) % Platelet Estimate Sodium (136-145) mmol/L Potassium (3.5-5.1) mmol/L Chloride (98-107) mmol/L Carbon Dioxide (21-32) mmol/L Anion Gap (10-20) mmol/L BUN (7-18) mg/dL Creatinine (0.55-1.02) mg/dL Est Cr Clr Drug Dosing Estimated GFR (MDRD) Glucose (74-106) mg/dL Lactic Acid 2.1 H* (0.4-2.0) mmol/L Calcium (8.5-10.1) mg/dL Corrected Calcium (8.5-10.1) mg/dL Phosphorus (2.6-4.7) mg/dL Magnesium (1.8-2.4) mg/dL Total Bilirubin (0.2-1.0) mg/dL AST (15-37) U/L ALT (14-59) U/L Alkaline Phosphatase (46-116) U/L C-Reactive Protein (<=0.9) mg/dL Total Protein (6.4-8.2) g/dL Albumin (3.4-5.0) g/dL Globulin Albumin/Globulin Ratio Urine Color Yellow (YELLOW) Urine Appearance Clear (CLEAR) Urine pH 6.0 (5.0-8.0) Ur Specific [place] 1.025 Urine Protein Negative (NEGATIVE) mg/dL Urine Glucose (UA) Negative (NEGATIVE) mg/dL Urine Ketones Negative (NEGATIVE) mg/dL Urine Occult Blood Negative (NEGATIVE) Urine Nitrite Negative (NEGATIVE) Urine Bilirubin Negative (NEGATIVE) Urine Urobilinogen 0.2 (0.2) EU/dL Ur Leukocyte Esterase Negative (NEGATIVE) Urine RBC 0-5 (NOT SEEN) /HPF Urine WBC 0-5 (NOT SEEN) /HPF Ur Squamous Epith Cells Rare (NEGATIVE) /HPF Urine Bacteria Rare (NEGATIVE) /HPF Urine Mucus Rare H (NEGATIVE) /LPF 01/07/19 Range/Units 08:02 WBC (4.0-10.0) x10^3/uL RBC (4.00-5.50) x10^6/uL Hgb (12.0-16.0) g/dL Hct (33.0-47.0) % MCV (78.0-93.0) fL MCH (26.0-32.0) pg MCHC (32.0-36.0) g/dL RDW Coeff of Christie (10.0-15.0) % Plt Count (130-400) x10^3/uL Neutrophils % (Manual) (50-80) % Band Neutrophils % (0-6) % Lymphocytes % (Manual) (25-50) % Monocytes % (Manual) (2-11) % Platelet Estimate Sodium (136-145) mmol/L Potassium (3.5-5.1) mmol/L Chloride (98-107) mmol/L Carbon Dioxide (21-32) mmol/L Anion Gap (10-20) mmol/L BUN (7-18) mg/dL Creatinine (0.55-1.02) mg/dL Est Cr Clr Drug Dosing Estimated GFR (MDRD) Glucose (74-106) mg/dL Lactic Acid 1.3 (0.4-2.0) mmol/L Calcium (8.5-10.1) mg/dL Corrected Calcium (8.5-10.1) mg/dL Phosphorus (2.6-4.7) mg/dL Magnesium (1.8-2.4) mg/dL Total Bilirubin (0.2-1.0) mg/dL AST (15-37) U/L ALT (14-59) U/L Alkaline Phosphatase (46-116) U/L C-Reactive Protein (<=0.9) mg/dL Total Protein (6.4-8.2) g/dL Albumin (3.4-5.0) g/dL Globulin Albumin/Globulin Ratio Urine Color (YELLOW) Urine Appearance (CLEAR) Urine pH (5.0-8.0) Ur Specific [place] Urine Protein (NEGATIVE) mg/dL Urine Glucose (UA) (NEGATIVE) mg/dL Urine Ketones (NEGATIVE) mg/dL Urine Occult Blood (NEGATIVE) Urine Nitrite (NEGATIVE) Urine Bilirubin (NEGATIVE) Urine Urobilinogen (0.2) EU/dL Ur Leukocyte Esterase (NEGATIVE) Urine RBC (NOT SEEN) /HPF Urine WBC (NOT SEEN) /HPF Ur Squamous Epith Cells (NEGATIVE) /HPF Urine Bacteria (NEGATIVE) /HPF Urine Mucus (NEGATIVE) /LPF DENNIS Results - Last 24 hrs: Microbiology 01/06/19 09:15 Aerobic Blood Culture - Preliminary Blood - Venous - Lab Draw NO GROWTH AFTER 1 DAY Anaerobic Blood Culture - Preliminary NO GROWTH AFTER 1 DAY 01/06/19 09:05 Aerobic Blood Culture - Preliminary Blood - Venous NO GROWTH AFTER 1 DAY Anaerobic Blood Culture - Final 01/06/19 09:58 MRSA Surveillance Culture - Final Nares, Left NO MRSA ISOLATED 01/06/19 08:48 Influenza Type A Antigen Screen - Final Nasal, Unspecified NEGATIVE INFLUENZA A VIRUS AG Influenza Type B Antigen Screen - Final NEGATIVE INFLUENZA B VIRUS AG Med Orders - Current: Current Medications Acetaminophen (Tylenol) 650 mg PO Q4H PRN PRN Reason: Pain Albuterol (Proventil Neb Soln) 2.5 mg INH Q4H PRN PRN Reason: Shortness of Breath Albuterol/Ipratropium (Duoneb 3.0-0.5 Mg/3 Ml) 3 ml NEB Q6HRRT [facility] Last Admin: 01/07/19 07:18 Dose: 3 ml Aripiprazole (Abilify) 5 mg PO DAILY [facility] Last Admin: 01/07/19 07:55 Dose: 5 mg Cholecalciferol (Vitamin D3) 4,000 units PO DAILY [facility] Last Admin: 01/07/19 07:55 Dose: 4,000 units Cyanocobalamin (Vitamin B12) 1,000 mcg PO DAILY [facility] Last Admin: 01/07/19 07:55 Dose: 1,000 mcg Docusate Sodium (Colace) 100 mg PO DAILY [facility] Last Admin: 01/07/19 07:55 Dose: 100 mg Donepezil HCl (Aricept) 10 mg PO BID [facility] Last Admin: 01/07/19 07:55 Dose: 10 mg Enoxaparin Sodium (Lovenox) 30 mg SUBCUT DAILY [facility] Last Admin: 01/07/19 07:54 Dose: 30 mg Furosemide (Lasix) 40 mg PO DAILY [facility] Last Admin: 01/07/19 07:55 Dose: 40 mg Gabapentin (Neurontin) 300 mg PO BEDTIME [facility] Last Admin: 01/06/19 19:57 Dose: 300 mg Guaifenesin (Mucinex) 600 mg PO BID [facility] Stop: 01/11/19 20:01 Last Admin: 01/07/19 07:56 Dose: 600 mg Guaifenesin (Mucinex) 600 mg PO BID PRN PRN Reason: chest congestion Potassium Chloride/Sodium Chloride (Normal Saline With 20 Meq Kcl) 1,000 mls @ 100 mls/hr IV ASDIRECTED [facility] Last Admin: 01/07/19 06:27 Dose: 100 mls/hr Piperacillin Sod/Tazobactam (Sod 3.375 gm/ Sodium Chloride) 100 mls @ 200 mls/ hr IV STAT ONE Stop: 01/07/19 09:59 Levothyroxine Sodium (Synthroid) 88 mcg PO ACBREAKFAST [facility] Last Admin: 01/07/19 08:02 Dose: 88 mcg Magnesium Oxide (Magnesium Oxide) 400 mg PO DAILY [facility] Last Admin: 01/07/19 07:55 Dose: 400 mg Metoprolol Succinate (Toprol Xl) 50 mg PO DAILY [facility] Last Admin: 01/07/19 07:55 Dose: 50 mg Montelukast Sodium (Singulair) 10 mg PO BEDTIME [facility] Last Admin: 01/06/19 19:57 Dose: 10 mg Breo Ellipta 200-25 (Mcg Inh Own Med) 1 inh PO DAILY [facility] Last Admin: 01/07/19 07:57 Dose: 1 inh Omeprazole (Omeprazole) 40 mg PO ACBREAKFAST [facility] Last Admin: 01/07/19 08:02 Dose: 40 mg Potassium Chloride (Klor-Con 10) 10 meq PO DAILY [facility] Last Admin: 01/07/19 07:55 Dose: 10 meq Prednisone (Prednisone) 10 mg PO DAILY [facility] Stop: 01/10/19 08:01 Simvastatin (Zocor) 40 mg PO BEDTIME [facility] Last Admin: 01/06/19 19:57 Dose: 40 mg Sodium Chloride (Saline Flush) 10 ml FLUSH ASDIRECTED PRN PRN Reason: Keep Vein Open Trazodone HCl (Trazodone) 100 mg PO BEDTIME [facility] Last Admin: 01/06/19 19:57 Dose: 100 mg Venlafaxine HCl (Effexor Xr) 75 mg PO DAILY [facility] Last Admin: 01/07/19 07:55 Dose: 75 mg Venlafaxine HCl (Effexor Xr) 150 mg PO DAILY [facility] Last Admin: 01/07/19 07:55 Dose: 150 mg Discontinued Medications Ceftriaxone Sodium (Rocephin) 2 gm IVPUSH STAT ONE Stop: 01/06/19 09:12 Last Admin: 01/06/19 09:20 Dose: 2 gm Ceftriaxone Sodium (Rocephin) 2 gm IVPUSH DAILY [facility] Last Admin: 01/07/19 07:54 Dose: 2 gm Doxycycline Hyclate (Vibramycin) 100 mg PO ONETIME ONE Stop: 01/06/19 09:33 Last Admin: 01/06/19 09:38 Dose: 100 mg Doxycycline Hyclate (Vibramycin) 100 mg PO BID [facility] Last Admin: 01/07/19 07:55 Dose: 100 mg Prednisone (Prednisone) 20 mg PO DAILY [facility] Stop: 01/07/19 08:01 Last Admin: 01/07/19 07:55 Dose: 20 mg - Exam Quality Assessment: Reports: Supplemental Oxygen General: Reports: Alert, Oriented Neck: Reports: Supple Lungs: Reports: Rales, Rhonchi, Wheezing Cardiovascular: Reports: Regular Rate, Regular Rhythm GI/Abdominal Exam: Normal Bowel Sounds, Soft, Non-Tender, No Organomegaly, No Distention (Female) Exam: Deferred Rectal (Female) Exam: Deferred Back Exam: Reports: Normal Inspection, Full Range of Motion Extremities: Normal Inspection, Normal Range of Motion, Non-Tender, No Pedal Edema, Normal Capillary Refill Skin: Reports: Warm, Dry, Intact Neurological: Reports: No New Focal Deficit, Other (mildly confused-history of dementia) Psy/Mental Status: Reports: Alert, Normal Affect, Normal Mood
[2019-01-07 10:21] VITALS: BP 120/62
--- NOTE | 2019-01-07 10:41 | CR ---
[id number] RAD/RAD Chest PA or AP 1V EXAM: RAD Chest PA or AP 1V INDICATION: PNEUMONIA. COMPARISON: January 06, 2019. DISCUSSION: Cardiomediastinal silhouette is stable in size and contour. Bibasilar pulmonary infiltrates are not significant changed when compared to the prior study. Small right pleural effusion. Low lung volumes associated vascular crowding. IMPRESSION: Stable chest with bibasilar pulmonary infiltrates. Alonso Bueno DO 01/07/19 1040 Thank you for allowing us to participate in the care of your patient.
[2019-01-08] MEDS ORDERED: predniSONE 10 MG Tab PO SCH (08:00)
[2019-01-12] MEDS ORDERED: guaiFENesin 600 MG Tab.ER PO PRN (06:00)
== END 2019-01-07 12:00 | disposition short-term general hospital (02) ==
LOC: VM.ED 08:36 → UNDOADMOB 08:37 → VM.MS 08:37 → UNDOADMOB 09:39 → VM.MS 09:39
PROVIDERS: ADMIT Physician Assistant; ATTEND Physician Assistant
DX: J15.9 Unspecified bacterial pneumonia (principal); I13.0 Hypertensive heart and chronic kidney disease with heart failure and stage 1 through stage 4 chronic kidney disease, or unspecified chronic kidney disease; N18.9 Chronic kidney disease, unspecified; I50.9 Heart failure, unspecified; J43.2 Centrilobular emphysema; E78.00 Pure hypercholesterolemia, unspecified; Z79.899 Other long term (current) drug therapy
CPT/HCPCS: 36415; 71045; 80053; 81001; 83605; 83735; 84100; 85025; 85027; 85610; 86140; 87040; 87804; 93005; 94640; 94760; 96374; 99285; A9270; J0696; J1650; J2543; J3480; J7050; 96361; 96365; 96372; 96375; 96376; G0378; J7620-GY

== ENCOUNTER 2020-10-08 15:37 | Inpatient (IN) | payer MEDICARE, MEDICAID ==
[2020-10-08] MEDS ORDERED: Sodium Chloride 0.9% 10 ML Syringe FLUSH PRN (16:05)
[2020-10-08 16:59] LABS: CHLORIDE,CL 99 mmol/L (98-107); SODIUM,NA 136 mmol/L (136-145)
[2020-10-08 17:00] LABS: ANION GAP 14.4 mmol/L (10-20)
--- NOTE | 2020-10-08 17:12 | EDM.PDOC ---
ED HPI GENERAL MEDICAL PROBLEM - General Chief Complaint: Respiratory Problem Stated Complaint: COVID POSITIVE- Time Seen by Provider: 10/08/20 15:40 Source of Information: Reports: EMS, Group Home Records History Limitations: Reports: No Limitations - History of Present Illness INITIAL COMMENTS - FREE TEXT/NARRATIVE: Pt. was sent to ER for evaluation and treatment via EMS. Pt. was diagnosed with covid [address] [facility]. Staff states that the patient has been experiencing increased work of breathing, confusion, and lethargy for the past day. Oral intake has been poor. Staff states that she was on O2 per [place] at 10L/min and was still satting in the low 80s. Temp at [facility] was 99.9. Pt. has a history or dementia and resides in the special care center at [facility]. Overall, accurate ROS was not obtainable due to decreased mental status/confusion. 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 - Related Data Allergies Allergy/AdvReac Type Severity Reaction Status Date / Time No Known Allergies Allergy Verified 10/08/20 16:04 Home Meds: Home Meds Acetaminophen [Tylenol] 650 mg PO Q4H PRN MDD 3000 mg 01/21/14 [History] Furosemide [Lasix] 40 mg PO DAILY 01/21/14 [History] Gabapentin [Neurontin] 300 mg PO BEDTIME 01/21/14 [History] Venlafaxine [Effexor XR] 75 mg PO DAILY 01/21/14 [History] Donepezil [Aricept] 10 mg PO BID 09/22/15 [History] Meloxicam 7.5 mg PO DAILY 09/22/15 [History] Potassium Chloride [Klor-Con M10] 10 meq PO DAILY 09/22/15 [History] Albuterol Sulfate [Ventolin Hfa] 2 inh PO Q4H PRN 03/05/18 [History] Cholecalciferol (Vitamin D3) [Vitamin D3] 4,000 unit PO DAILY 03/05/18 [History] Cyanocobalamin (Vitamin B12) [Vitamin B12] 1,000 mcg PO DAILY 03/05/18 [History] Docusate Sodium [Colace] 100 mg PO DAILY 03/05/18 [History] Fluticasone/Vilanterol [Breo Ellipta 200-25 MCG Inhalation Kit] 1 inh PO DAILY 03/05/18 [History] Magnesium Oxide [Magnesium] 400 mg PO DAILY 03/05/18 [History] Omeprazole 40 mg PO DAILY 03/05/18 [History] Simvastatin 40 mg PO BEDTIME 03/05/18 [History] Venlafaxine HCl [Venlafaxine ER] 150 mg PO DAILY 03/05/18 [History] guaiFENesin [Mucinex] 600 mg PO BID 03/05/18 [History] polyethylene glycoL 3350 [MiraLAX] 17 gram PO DAILY PRN 03/05/18 [History] traZODone HCl [Trazodone HCl] 100 mg PO BEDTIME 03/05/18 [History] Montelukast [Singulair] 10 mg PO BEDTIME #30 tablet 03/09/18 [Rx] ARIPiprazole [Aripiprazole] 5 mg PO DAILY 01/06/19 [History] Albuterol/Ipratropium [DuoNeb 3.0-0.5 MG/3 ML] 3 ml NEB Q6HRRT 01/06/19 [History] Levothyroxine [Synthroid] 88 mcg PO ACBREAKFAST 01/06/19 [History] Metoprolol Succinate 50 mg PO DAILY 01/06/19 [History] Naproxen Sodium 220 mg PO Q12H PRN 01/06/19 [History] predniSONE 0 dose PO DAILY 01/06/19 [History] Past Medical History HEENT History: Reports: Cataract, Retinal Detachment, Other (See Below) Other HEENT History: pseudophakos, presbyopia, blepharitis, posterior vitreous detachment, Cardiovascular History: Reports: CAD, Heart Failure, High Cholesterol, Hypertension, Other (See Below) Other Cardiovascular History: parox SV tach Respiratory History: Reports: Asthma, COPD, Sleep Apnea, Other (See Below) Other Respiratory History: centrilobular emphysema Gastrointestinal History: Reports: Chronic Constipation, Colon Polyp, Diverticulosis, GERD, Other (See Below) Other Gastrointestinal History: lower gi bleed Genitourinary History: Reports: Chronic Renal Insuffiency Musculoskeletal History: Reports: Fibromyalgia, Other (See Below) Other Musculoskeletal History: lumbar DJD, disorder of bone or cartilage, carpal tunnel Neurological History: Reports: Other (See Below) Psychiatric History: Reports: Dementia, Depression, Hallucinations, Other (See Below) Other Psychiatric History: insomnia, situational stress Endocrine/Metabolic History: Reports: Hypothyroidism, Vitamin D Deficiency, Other (See Below) Other Endocrine/Metabolic History: enlarged lymph nodes, hypergycemia Hematologic History: Reports: B12 Deficiency, Iron Deficiency, Other (See Below) Other Hematologic History: leukocytosis, vit d deficiency, hypomagnesium Immunologic History: Reports: None Oncologic (Cancer) History: Reports: Thyroid Dermatologic History: Reports: None - Past Surgical History HEENT Surgical History: Reports: Eye Surgery GI Surgical History: Reports: Cholecystectomy, Hernia Repair/Other, Other (See Below) Female Surgical History: Reports: Hysterectomy Endocrine Surgical History: Reports: Thyroidectomy Social & Family History - Family History Family Medical History: No Pertinent Family History Cardiac: Reports: OK Endocrine/Metabolic: Reports: Diabetes, type II Oncologic: Reports: Breast, Ovarian - Tobacco Use Tobacco Use Status *Q: Unknown Ever Used Tobacco - Caffeine Use Caffeine Use: Reports: Coffee, Soda - Living Situation & Occupation Living situation: Reports: , Extended Care Facility Occupation: Retired ED ROS GENERAL - Review of Systems Review Of Systems: See Below Constitutional: Reports: Fever, Malaise, Weakness, Fatigue, Decreased Appetite HEENT: Reports: No Symptoms Respiratory: Reports: Other (hypoxia) Cardiovascular: Reports: No Symptoms Endocrine: Reports: No Symptoms GI/Abdominal: Reports: No Symptoms : Reports: No Symptoms Musculoskeletal: Reports: No Symptoms Skin: Reports: No Symptoms Neurological: Reports: No Symptoms Psychiatric: Reports: No Symptoms Hematologic/Lymphatic: Reports: No Symptoms Immunologic: Reports: No Symptoms ED EXAM, GENERAL - Physical Exam Exam: See Below Exam Limited By: No Limitations General Appearance: Alert, WD/WN, No Apparent Distress Nose: No Blood Throat/Mouth: Normal Inspection, Normal Lips, Normal Oropharynx, No Airway Compromise Head: Atraumatic, Normocephalic Neck: Normal Inspection, Supple, Non-Tender Respiratory/Chest: Crackles, Rhonchi Cardiovascular: Normal Peripheral Pulses, Regular Rate, Rhythm, No Edema Course - Vital Signs Last Recorded V/S: Last Vital Signs Temp 36.2 C 10/08/20 15:40 Pulse 64 10/08/20 15:40 Resp 28 H 10/08/20 15:40 BP 135/69 10/08/20 15:40 Pulse Ox 95 10/08/20 15:40 - Orders/Labs/Meds Orders: Active Orders 24 hr Category Date Time Status RT Aerosol Therapy [RC] ASDIRECTED Care 10/08/20 17:50 Active CULTURE BLOOD [BC] Stat Lab 10/08/20 16:19 Received CULTURE BLOOD [BC] Stat Lab 10/08/20 16:22 Received Sodium Chloride 0.9% [Saline Flush] Med 10/08/20 16:05 Active 10 ml FLUSH ASDIRECTED PRN Blood Culture x2 Reflex Set [OM.PC] Stat Oth 10/08/20 16:06 Ordered Peripheral IV Insertion Adult [OM.PC] Routine Oth 10/08/20 16:05 Ordered Medication Orders Azithromycin (Zithromax) 500 mg PO DAILY LEXIE Ceftriaxone Sodium (Rocephin) 1 gm IVPUSH DAILY LEXIE Sodium Chloride (Saline Flush) 10 ml FLUSH ASDIRECTED PRN PRN Reason: Keep Vein Open Labs: Laboratory Tests 10/08/20 10/08/20 10/08/20 Range/Units 16:19 16:19 16:19 WBC 12.5 H (4.0-10.0) x10^3/uL RBC 4.53 (4.00-5.50) x10^6/uL Hgb 12.5 (12.0-16.0) g/dL Hct 38.8 (33.0-47.0) % MCV 85.7 D (78.0-93.0) fL MCH 27.6 (26.0-32.0) pg MCHC 32.2 (32.0-36.0) g/dL RDW Coeff of Christie 14.8 (10.0-15.0) % Plt Count 250 (130-400) x10^3/uL Add Manual Diff Yes Neutrophils % (Manual) 76 (50-80) % Band Neutrophils % 1 (0-6) % Lymphocytes % (Manual) 20 L (25-50) % Monocytes % (Manual) 3 (2-11) % Smudge Cells Few H Platelet Estimate Adequate PT 10.1 (9.5-12.3) SEC INR 0.9 L (2.0-3.5) Sodium 136 (136-145) mmol/L Potassium 3.4 L (3.5-5.1) mmol/L Chloride 99 (98-107) mmol/L Carbon Dioxide 26 (21-32) mmol/L Anion Gap 14.4 (10-20) mmol/L BUN 24 H (7-18) mg/dL Creatinine 1.4 H (0.55-1.02) mg/dL Est Cr Clr Drug Dosing TNP Estimated GFR (MDRD) 36 Glucose 100 (74-106) mg/dL Lactic Acid (0.4-2.0) mmol/L Calcium 8.4 L (8.5-10.1) mg/dL Corrected Calcium 9.52 (8.5-10.1) mg/dL Magnesium 1.7 L (1.8-2.4) mg/dL Total Bilirubin 0.5 (0.2-1.0) mg/dL AST 38 H (15-37) U/L ALT 29 (14-59) U/L Alkaline Phosphatase 66 (46-116) U/L Lactate Dehydrogenase 462 H (81-234) U/L C-Reactive Protein 7.7 H (<=0.9) mg/dL Total Protein 7.4 (6.4-8.2) g/dL Albumin 2.6 L (3.4-5.0) g/dL Globulin 4.8 Albumin/Globulin Ratio 0.54 10/08/20 Range/Units 16:19 WBC (4.0-10.0) x10^3/uL RBC (4.00-5.50) x10^6/uL Hgb (12.0-16.0) g/dL Hct (33.0-47.0) % MCV (78.0-93.0) fL MCH (26.0-32.0) pg MCHC (32.0-36.0) g/dL RDW Coeff of Christie (10.0-15.0) % Plt Count (130-400) x10^3/uL Add Manual Diff Neutrophils % (Manual) (50-80) % Band Neutrophils % (0-6) % Lymphocytes % (Manual) (25-50) % Monocytes % (Manual) (2-11) % Smudge Cells Platelet Estimate PT (9.5-12.3) SEC INR (2.0-3.5) Sodium (136-145) mmol/L Potassium (3.5-5.1) mmol/L Chloride (98-107) mmol/L Carbon Dioxide (21-32) mmol/L Anion Gap (10-20) mmol/L BUN (7-18) mg/dL Creatinine (0.55-1.02) mg/dL Est Cr Clr Drug Dosing Estimated GFR (MDRD) Glucose (74-106) mg/dL Lactic Acid 1.5 (0.4-2.0) mmol/L Calcium (8.5-10.1) mg/dL Corrected Calcium (8.5-10.1) mg/dL Magnesium (1.8-2.4) mg/dL Total Bilirubin (0.2-1.0) mg/dL AST (15-37) U/L ALT (14-59) U/L Alkaline Phosphatase (46-116) U/L Lactate Dehydrogenase (81-234) U/L C-Reactive Protein (<=0.9) mg/dL Total Protein (6.4-8.2) g/dL Albumin (3.4-5.0) g/dL Globulin Albumin/Globulin Ratio Meds: Medications Generic Name Dose Route Start Last Admin Trade Name Fretim PRN Reason Stop Dose Admin Azithromycin 500 mg 10/08/20 18:15 Zithromax PO DAILY LEXIE Ceftriaxone Sodium 1 gm 10/08/20 18:15 Rocephin IVPUSH DAILY LEXIE Sodium Chloride 10 ml 10/08/20 16:05 Saline Flush FLUSH ASDIRECTED PRN Keep Vein Open Discontinued Medications Generic Name Dose Route Start Last Admin Trade Name Freq PRN Reason Stop Dose Admin Albuterol/Ipratropium 3 ml 10/08/20 17:49 10/08/20 18:00 Duoneb 3.0-0.5 Mg/3 Ml NEB 10/08/20 17:50 3 ml ONETIME ONE Administration Dexamethasone 4 mg 10/08/20 17:43 10/08/20 17:58 Decadron IM 10/08/20 17:44 4 mg ONETIME ONE Administration Departure - Departure Time of Disposition: 18:48 Disposition: Admitted As Inpatient 64 Clinical Impression: COVID-19 - Discharge Information Sepsis Event Note (ED) - Evaluation Sepsis Screening Result: No Definite Risk - Focused Exam Vital Signs: Vital Signs Temp Pulse Resp BP Pulse Ox 10/08/20 15:40 36.2 C 64 28 H 135/69 95 - Problem List Review Problem List Initiated/Reviewed/Updated: Yes - My Orders Last 24 Hours: My Active Orders 10/08/20 16:05 Sodium Chloride 0.9% [Saline Flush] 10 ml FLUSH ASDIRECTED PRN Peripheral IV Insertion Adult [OM.PC] Routine 10/08/20 16:06 Blood Culture x2 Reflex Set [OM.PC] Stat 10/08/20 16:19 CULTURE BLOOD [BC] Stat 10/08/20 16:22 CULTURE BLOOD [BC] Stat 10/08/20 17:50 RT Aerosol Therapy [RC] ASDIRECTED - Assessment/Plan Last 24 Hours: My Active Orders 10/08/20 16:05 Sodium Chloride 0.9% [Saline Flush] 10 ml FLUSH ASDIRECTED PRN Peripheral IV Insertion Adult [OM.PC] Routine 10/08/20 16:06 Blood Culture x2 Reflex Set [OM.PC] Stat 10/08/20 16:19 CULTURE BLOOD [BC] Stat 10/08/20 16:22 CULTURE BLOOD [BC] Stat 10/08/20 17:50 RT Aerosol Therapy [RC] ASDIRECTED Plan: Pt. will be admitted acutely due to hypoxia. She was unable to hold O2 sat above 90% unless she was on O2 per NRB at 15/min. Dr. García is admitting. Pt. is a code 2, DNR/DNI
[2020-10-08] MEDS ORDERED: Dexamethasone 4 MG/ML SDV IM ONE (17:43)
[2020-10-08] MEDS ORDERED: Albuterol/Ipratropium 3.0-0.5 MG/3 ML Neb Soln NEB ONE (17:49)
--- NOTE | 2020-10-08 17:59 | CR ---
[id number] RAD/RAD Chest PA or AP 1V EXAM: RAD Chest PA or AP 1V INDICATION: HYPOXIA, POSITIVE COVID 19. COMPARISON: January 07, 2019. DISCUSSION: Cardiomediastinal silhouette is stable in size and contour. Patchy airspace opacifications bilaterally. No pneumothorax or pleural effusion. Pulmonary hyperinflation. IMPRESSION: Patchy airspace opacifications bilaterally are likely infectious/inflammatory as can be seen with atypical/viral pneumonia. Alonso Bueno DO 10/08/20 [id number] Thank you for allowing us to participate in the care of your patient.
[2020-10-08] MEDS ORDERED: Albuterol 0.083% 2.5 MG/3 ML Neb Soln NEB PRN (19:33)
[2020-10-08] MEDS ORDERED: Polyethylene Glycol 3350 Powder 17 GM Packet PO PRN (19:37)
[2020-10-08] MEDS ORDERED: Albuterol HFA 18 Gm Inhaler INH PRN (19:37)
[2020-10-08] MEDS ORDERED: Dexamethasone 4 MG/ML SDV IVPUSH ONE (19:54)
--- NOTE | 2020-10-08 20:04 | HP ---
CHIEF COMPLAINT: Hypoxia. HISTORY OF PRESENT ILLNESS: This is an 84-year-old presenting with COVID on 10/01, who had fevers on that date, who is normally on 2 to 4 L due to her COPD and heart failure, but today was 79% on 4 L. They turned up her oxygen to 10 L and still she was in the 80s, so she was sent over to [facility]. On admission to [facility], her white count was 12.5, her hemoglobin was 12.5, her platelets were 250. INR 0.9. Sodium 136, potassium 3.4, chloride 99, bicarb 26, BUN 24, creatinine 1.4. Lactic acid 1.5, magnesium 1.7, bilirubin 0.5, AST 38, ALT 29, LDH 462, CRP 7.7, and albumin 2.6. The patient has a known history of dementia, but she is aware she is at the hospital. ALLERGIES: Include none. MEDICATION LIST: Reviewed from [facility]. She is on Prilosec, Neurontin, Perforomist, Pulmicort nebulizers, levothyroxine, Lasix 60 mg daily, potassium 10 mEq daily, Imodium p.r.n., DuoNebs, Zocor, Abilify, trazodone, Mucinex p.r.n., Colace, MiraLAX, Aricept, Tylenol, magnesium, Toprol 50 mg daily, Effexor, vitamin D, and B12. PAST MEDICAL HISTORY: Colon polyps, essential hypertension, emphysema, FEV1 of 1.89 in 2005, chronic allergic rhinitis, chronic diastolic heart failure, chronic kidney disease stage 3, coronary artery disease with remote pericarditis, fibromyalgia, GERD, visual hallucinations, hyperglycemia, hypothyroidism, iron deficiency anemia with chronic blood loss, thyroid cancer remotely, mild persistent asthma without complication, moderate episode of depression, history of paroxysmal SVT, retinal detachment, hyperlipidemia, sleep apnea, vascular dementia, B12 deficiency, vitamin D deficiency. PAST SURGICAL HISTORY: The patient has had cataract surgery, thyroidectomy, eye surgeries, incisional hernia, left hemicolectomy for diverticular abscess, and cholecystectomy. FAMILY HISTORY: Both parents are . Her mother had diabetes. SOCIAL HISTORY: The patient is retired, , had 5 children. I did talk to her daughter, Kitty Mac, but DKK is her guardian. REVIEW OF SYSTEMS: The patient is not aware of any fever, chills. She does have underlying dementia, so history is limited from her. Otherwise, she denies any new pains. She has been coughing. She has felt short of breath. No abdominal pain, nausea, vomiting, or diarrhea presently. PHYSICAL EXAMINATION: Vital Signs: She was turned down to 10 L and was 87%. Her respiratory rate 28, temperature 97.2, pulse 64, blood pressure 135/69. General: She is in no acute distress. She is resting comfortably. She does not appear to be in any respiratory distress. Heart: Regular rate and rhythm. S1, S2 without murmurs. Lungs: Sounds, decreased air entry throughout with expiratory wheezing. Abdomen: Positive bowel sounds. Soft, nondistended, nontender. Extremities: Warm and dry. No edema. Mental Status: She is alert and oriented x1, that she is at the hospital. LABORATORY WORK: Reviewed. Chest x-ray shows bilateral infiltrates consistent with COVID-19. ASSESSMENT: 1. Coronavirus disease 19 infection, 10/01/2020. 2. Acute on chronic hypoxic respiratory failure secondary to coronavirus disease 19 infection. 3. Chronic obstructive pulmonary disease exacerbation due to coronavirus disease 19 with possible underlying pneumonia. 4. Vascular dementia. 5. Chronic diastolic heart failure, stable without exacerbation. 6. Chronic kidney disease. 7. Dementia. 8. Essential hypertension. 9. Hypomagnesemia and hypokalemia. PLAN: The patient will be admitted for acute cares. We will continue to follow lab work. I will put her on IV dexamethasone or at least get IM started if unable to place an IV. I will place her on IV Rocephin and oral Zithromax. If unable to obtain IV status, then IM. I will replace potassium and magnesium orally. I am going to hold off on any remdesivir given her chronic kidney disease. Monitor lab work. I updated her daughter, Kitty. We will also send off a procalcitonin level and anticipate the patient will need at least a 2- night stay and possibly longer. We will continue on the 15 L nonrebreather. She seems to be quite comfortable and maintaining her saturations with that. I do not feel that any IV fluids are indicated. We will continue her nebulizers. Put her in a negative pressure room. She does have a history of pneumonias as well, but does not have any current symptoms with swallowing. For DVT prophylaxis, she will be on Lovenox 40 mg daily. MKA: 10/08/2020 18:17:51 MODL: 10/08/2020 19:56:40 /[id number] MTDD
[2020-10-08] MEDS: traZODone 50 MG Tab PO SCH (21:24)
[2020-10-08] MEDS: Azithromycin 250 MG Tab PO SCH (21:24)
[2020-10-08] MEDS: Gabapentin 300 MG Cap PO SCH (21:24)
[2020-10-08] MEDS: Donepezil 10 MG Tab PO SCH (21:24)
[2020-10-08] MEDS: Simvastatin 40 MG Tab PO SCH (21:24)
[2020-10-08] MEDS: guaiFENesin 600 MG Tab.ER PO SCH (21:24)
[2020-10-08] MEDS: cefTRIAXone 1 GM Vial IVPUSH SCH (21:25)
[2020-10-08] MEDS: Enoxaparin 30 MG/0.3 ML Syringe SUBCUT SCH (21:25)
[2020-10-09] MEDS: Albuterol/Ipratropium 3.0-0.5 MG/3 ML Neb Soln NEB SCH ×2 (01:54→07:46)
[2020-10-09] MEDS: Omeprazole 20 MG Cap.CR PO SCH (06:11)
[2020-10-09] MEDS: Levothyroxine 88 MCG Tab PO SCH (06:11)
[2020-10-09] MEDS ORDERED: Dexamethasone 4 MG/ML SDV IVPUSH ONE (07:00)
[2020-10-09 07:32] LABS: ANION GAP 12.7 mmol/L (10-20)
[2020-10-09] MEDS: cefTRIAXone 1 GM Vial IVPUSH SCH (07:36)
[2020-10-09] MEDS: Enoxaparin 30 MG/0.3 ML Syringe SUBCUT SCH (07:36)
[2020-10-09] MEDS: Metoprolol Succinate 50 MG Tab.ER PO SCH (07:47)
[2020-10-09] MEDS: Azithromycin 250 MG Tab PO SCH (07:47)
[2020-10-09] MEDS: Magnesium Oxide 400 MG Tab PO SCH (07:47)
[2020-10-09] MEDS: guaiFENesin 600 MG Tab.ER PO SCH ×2 (07:47→21:04)
[2020-10-09] MEDS: Donepezil 10 MG Tab PO SCH ×2 (07:47→21:04)
[2020-10-09] MEDS: Cholecalciferol (Vitamin D3) 25 MCG Tab PO SCH (07:47)
[2020-10-09] MEDS: Cyanocobalamin (Vitamin B12) 1,000 MCG Tab PO SCH (07:48)
[2020-10-09] MEDS: Potassium Chloride 10 MEQ Tab.ER PO SCH (07:48)
[2020-10-09] MEDS: Venlafaxine 75 MG Cap.ER PO SCH (07:48)
[2020-10-09] MEDS: Docusate Sodium 100 MG Cap PO SCH (07:48)
[2020-10-09] MEDS: Furosemide 40 MG Tab PO SCH (07:49)
[2020-10-09] MEDS: ARIPiprazole 5 MG Tab PO SCH (07:49)
[2020-10-09] MEDS: Venlafaxine 150 MG Cap.ER PO SCH (07:49)
[2020-10-09] MEDS ORDERED: Albuterol/Ipratropium 3.0-0.5 MG/3 ML Neb Soln NEB PRN (09:36)
[2020-10-09] MEDS: Zinc Sulfate 220 MG Cap PO SCH (10:05)
[2020-10-09] MEDS: Ascorbic Acid 500 MG Tab PO SCH ×2 (10:05→21:04)
[2020-10-09] MEDS: Fluticasone-Salmeterol 113-14 MCG Powder Inhalant INH SCH ×2 (10:08→21:04)
--- NOTE | 2020-10-09 13:00 | PN ---
Progress Note for JOSS LERMA Date: 10/09/2020 Room #: VM.210 SUBJECTIVE: This is hospital day #2 with an 84-year-old admitted with acute hypoxic respiratory failure secondary to COVID and underlying COPD and diastolic heart failure. The patient has had saturations in the mid 80% to 88% range overnight on 15 L. She does not appear to be in any acute distress. She denies any pain. She denies any coughing. She has baseline dementia and lives at the intermediate. She was able to get herself to the bathroom without any oxygen on, but was quite winded and tired when we got her back, and saturations, although they said 91% at one point, actually were down in the 70s and took a while to come up to the 80s. We did a venous blood gas which failed to reveal any hypercapnia. Despite that, due to low saturations around 83% to 84% on the 15 L non-rebreather, decision was made to place her on BiPAP. The patient otherwise has been quite alert. She is answering questions. She is not recognizing me, but aware she is in [place]. OBJECTIVE: VITAL SIGNS: Her temperature is 97.4, pulse 64, blood pressure 130/76, respiratory rate 24, and O2 of 84 on 15 L. GENERAL: She is in no acute distress. HEART: Regular rate and rhythm without murmur. LUNGS: Lung sounds decreased with crackles in both bases. No wheezing appreciated. ABDOMEN: Positive bowel sounds. Soft and nontender. EXTREMITIES: Warm and dry. No edema. SKIN: Warm, but overall she is pale, especially after being off oxygen. MENTAL STATUS: She is alert and orientated x1. LABORATORY DATA: Lab work today did show her white count up to 14.1, hemoglobin 11.6, and platelets 250. D-dimer 1.7. PCO2 on venous blood gas 40. Sodium 134, potassium 3.7, chloride 98, bicarbonate 27, BUN 26, creatinine 1.4, glucose 117, and calcium 8.4. Ferritin 416. Bilirubin 0.4. ALT, AST, and alkaline phosphatase all normal. Troponin negative. Albumin 2.4. ProBNP pending. ASSESSMENT: 1. Acute hypoxic respiratory failure secondary to coronavirus disease-19, chronic obstructive pulmonary disease exacerbation, and pneumonia. We will start the patient on BiPAP and see how she does. She is getting sleepy; however, she is not retaining CO2. 2. Coronavirus disease-19 infection since 10/01/2020. 3. Chronic obstructive pulmonary disease exacerbation, on dexamethasone day #2, on Rocephin and Zithromax as well. 4. Vascular dementia. 5. Chronic heart failure, stable, without exacerbation. 6. Chronic kidney disease. 7. Dementia. 8. Essential hypertension. 9. Hypomagnesemia and hypokalemia, replaced. 10.Elevated D-dimer. It is less than 3.0, so we will hold off on CT, PE protocol, at this point. 11.Chronic kidney disease. Creatinine at baseline 1.4. PLAN: The patient will continue acute cares with IV antibiotics and IV dexamethasone. We will get her started on the BiPAP. For DVT prophylaxis, she is on Lovenox. We will repeat lab work tomorrow. I anticipate that this patient will have a prolonged hospital stay due to her acute illness. I did update her guardian today and will try to update Kitty her daughter later. FREDDYA: 10/09/2020 12:34:22 MODL: 10/09/2020 12:51:56 /[id number] MTDMichelle
[2020-10-09] MEDS: Acetaminophen 325 MG Tab PO PRN (16:09)
[2020-10-09] MEDS ORDERED: QUEtiapine 25 MG Tab PO ONE (18:37)
[2020-10-09] MEDS ORDERED: Flumazenil 0.1 MG/ML 5 ML MDV IVPUSH PRN (18:37)
[2020-10-09] MEDS ORDERED: LORazepam 2 MG/ML SDV IVPUSH PRN (18:37)
[2020-10-09] MEDS ORDERED: QUEtiapine 25 MG Tab PO PRN (18:39)
[2020-10-09] MEDS: traZODone 50 MG Tab PO SCH (21:03)
[2020-10-09] MEDS: Simvastatin 40 MG Tab PO SCH (21:03)
[2020-10-09] MEDS: Gabapentin 300 MG Cap PO SCH (21:04)
[2020-10-10] MEDS: LORazepam 2 MG/ML SDV IVPUSH PRN ×2 (01:24→09:18)
[2020-10-10] MEDS: Omeprazole 20 MG Cap.CR PO SCH (07:25)
[2020-10-10] MEDS: Levothyroxine 88 MCG Tab PO SCH (07:27)
[2020-10-10] MEDS ORDERED: Dexamethasone 4 MG/ML SDV IVPUSH SCH (08:00)
[2020-10-10 08:44] LABS: ANION GAP 14.4 mmol/L (10-20)
[2020-10-10] MEDS: cefTRIAXone 1 GM Vial IVPUSH SCH (09:01)
[2020-10-10] MEDS: Enoxaparin 30 MG/0.3 ML Syringe SUBCUT SCH (09:01)
[2020-10-10] MEDS: Zinc Sulfate 220 MG Cap PO SCH (09:02)
[2020-10-10] MEDS: Donepezil 10 MG Tab PO SCH (09:02)
[2020-10-10] MEDS: Cholecalciferol (Vitamin D3) 25 MCG Tab PO SCH (09:03)
[2020-10-10] MEDS: Acetaminophen 325 MG Tab PO PRN (09:03)
[2020-10-10] MEDS: Metoprolol Succinate 50 MG Tab.ER PO SCH (09:03)
[2020-10-10] MEDS: Magnesium Oxide 400 MG Tab PO SCH (09:04)
[2020-10-10] MEDS: guaiFENesin 600 MG Tab.ER PO SCH (09:04)
[2020-10-10] MEDS: Furosemide 40 MG Tab PO SCH (09:04)
[2020-10-10] MEDS: Ascorbic Acid 500 MG Tab PO SCH (09:04)
[2020-10-10] MEDS: ARIPiprazole 5 MG Tab PO SCH (09:04)
[2020-10-10] MEDS: Azithromycin 250 MG Tab PO SCH (09:04)
[2020-10-10] MEDS: Venlafaxine 150 MG Cap.ER PO SCH (09:04)
[2020-10-10] MEDS: Venlafaxine 75 MG Cap.ER PO SCH (09:05)
[2020-10-10] MEDS: Docusate Sodium 100 MG Cap PO SCH (09:05)
[2020-10-10] MEDS: Cyanocobalamin (Vitamin B12) 1,000 MCG Tab PO SCH (09:05)
[2020-10-10] MEDS: Potassium Chloride 10 MEQ Tab.ER PO SCH (09:05)
[2020-10-10] MEDS: Fluticasone-Salmeterol 113-14 MCG Powder Inhalant INH SCH (09:05)
[2020-10-10 09:54] VITALS: BP 120/65; PULSE 72
[2020-10-10] MEDS ORDERED: Potassium Chloride 10 MEQ Tab.ER PO ONE (10:38)
--- NOTE | 2020-10-10 19:43 | DISCH ---
PRIMARY DISCHARGE DIAGNOSES: 1. Acute hypoxic respiratory failure secondary to coronavirus disease 19 diagnosed on 10/01. 2. Coronavirus disease 19 infection on 10/01/2020. 3. Chronic obstructive pulmonary disease and asthma, severe. FEV1 was around 1.89 in 2006 with exacerbation related to the coronavirus disease 19. 4. Chronic diastolic heart failure. 5. Chronic kidney disease, baseline around 1.4 to 1.5. 6. Coronary artery disease with remote pericarditis. Negative troponin on admission. 7. Gastroesophageal reflux disease. 8. Underlying dementia with behavioral disturbances, vascular type, B12 deficiency, vitamin D deficiency, hypomagnesemia, hypokalemia, and elevated D-dimer actually trending down since admission 1.[address] PE protocol was completed. 9. Possible pneumonia or secondary infection. Procalcitonin was negative. Returned today. Therefore, antibiotics were discontinued. 10.Moderate malnutrition. REASON FOR ADMISSION: On the date of admission, this 84-year-old female who normally lives at [facility] had been on her regular 2 to 4 L of oxygen when on the date of admission she dropped into the 70% range and was more lethargic. Even on 10 L, she was only in the 80% range. Therefore, was transitioned over to the ER, where she took 15 L to maintain sats around 88% to 90%. The patient was coughing. She was pleasantly confused. She was able to speak in sentences. She was wheezy. She did get a nebulizer. She was also initiated on IV dexamethasone. Due to the increasing oxygen requirements, decision was made to admit the patient. She did get put on vitamins, but not the remdesivir given her renal function. She was given Lovenox for DVT prophylaxis. She was given IV Rocephin and Zithromax for possible pneumonia versus COPD exacerbation. Unfortunately, the patient's condition did not improve, but worsened to the point where she was requiring BiPAP to try to maintain her saturations in the mid 80% range. She did require some Ativan to use the BiPAP, but she frankly just took it off yesterday and was maintained on non-rebreather, but then her sats were dropping into the 79% range and BiPAP was reapplied 100% FiO2 with 15/6 settings and her sats were about 84% to 86%. Decision was made by myself after contacting her primary care, Dr. Lebron, to transfer the patient to the [facility] unit for further care, especially due to her increasing needs potentially even for a sitter. She was found to be up and out of bed, taking herself to the bathroom with her oxygen off. PCO2 levels were checked via venous blood gases and were 45 yesterday, 45 today. Blood sugars were acceptable, actually only 70 this morning despite not getting any insulin as she had very little intake due to her respiratory distress. Her daughter was contacted and notified of the potential transfer. I also contacted her guardian at and they were in support of transferring her to a higher level of care. Dr. Davis at [place] did accept the patient. PHYSICAL EXAMINATION: Vital Signs: On transfer included temperature 99.6, pulse 72, blood pressure 120/65, respiratory rate 22, O2 of 88% on 100% FiO2. General: She is in no acute distress. Heart: Regular rate and rhythm. S1, S2 without murmur. Lungs: Decreased throughout. I did not appreciate any wheezes today. The effort was poor. I did not even appreciate crackles. Abdomen: Had positive bowel sounds. It is soft, nondistended, nontender. Extremities: Warm and dry. She had no edema. Mental Status: She did try to answer questions, but was confused. She was not oriented to person or place or time. LABORATORY WORK: Today did show the patient to have a white count down to 12.5, hemoglobin 12, platelets 277. D-dimer down to 1.5, pCO2 of 45 by venous blood gas. Sodium 137, potassium 3.4, chloride 99, bicarb 27, BUN 34, creatinine 1.5, GFR 33, glucose 70, calcium 8.6, ferritin was 492, bilirubin 0.4, AST 40, ALT 26. ProBNP was normal at 237 yesterday. Albumin 2.4. DISCHARGE PLANS AND INSTRUCTIONS: She is going to [place] for further care. She is a code level 3, DNR/DNI, but they do have other things like the Airvo to try and oxygenate her. We did not attempt proning. Due to the patient's body habitus and mental status, we did not feel she would tolerate this. Greater than 30 minutes spent on the discharge process. MKA: 10/10/2020 12:23:18 MODL: 10/10/2020 19:23:11 /[id number]
== END 2020-10-10 12:03 | disposition short-term general hospital (02) | DRG 177 ==
LOC: VM.ED 15:37 → VM.MS 17:52
PROVIDERS: ADMIT Internal Medicine; ATTEND Internal Medicine
PROC: XW033F5 Introduction of Other New Technology Therapeutic Substance into Peripheral Vein, Percutaneous Approach, New Technology Group 5 (ICD-10-PCS; principal; 2020-10-08)
DX: U07.1 COVID-19 (principal); J96.01 Acute respiratory failure with hypoxia; N18.9 Chronic kidney disease, unspecified; J12.89 Other viral pneumonia; I50.9 Heart failure, unspecified; E78.00 Pure hypercholesterolemia, unspecified; J44.9 Chronic obstructive pulmonary disease, unspecified; G47.30 Sleep apnea, unspecified; I13.0 Hypertensive heart and chronic kidney disease with heart failure and stage 1 through stage 4 chronic kidney disease, or unspecified chronic kidney disease; K59.09 Other constipation; I50.32 Chronic diastolic (congestive) heart failure; Z85.850 Personal history of malignant neoplasm of thyroid; Z79.890 Hormone replacement therapy; Z79.899 Other long term (current) drug therapy; I31.9 Disease of pericardium, unspecified; F03.91 Unspecified dementia, unspecified severity, with behavioral disturbance; E44.0 Moderate protein-calorie malnutrition; I25.10 Atherosclerotic heart disease of native coronary artery without angina pectoris; K21.9 Gastro-esophageal reflux disease without esophagitis; E83.42 Hypomagnesemia; E87.6 Hypokalemia; E55.9 Vitamin D deficiency, unspecified; E53.8 Deficiency of other specified B group vitamins; Z68.22 Body mass index [BMI] 22.0-22.9, adult; Z66 Do not resuscitate; Z86.010 Personal history of colon polyps; J43.9 Emphysema, unspecified; N18.30 Chronic kidney disease, stage 3 unspecified; E03.9 Hypothyroidism, unspecified; D50.9 Iron deficiency anemia, unspecified; E78.5 Hyperlipidemia, unspecified; G47.33 Obstructive sleep apnea (adult) (pediatric); Z98.890 Other specified postprocedural states; Z98.42 Cataract extraction status, left eye; Z98.41 Cataract extraction status, right eye; Z96.1 Presence of intraocular lens; Z90.49 Acquired absence of other specified parts of digestive tract
CPT/HCPCS: 36415; 71045; 80053; 82728; 82803; 82962; 83605; 83615; 83735; 83880; 84145; 84484; 85025; 85379; 85610; 86140; 87040; 94640; 94660; 94760; 99284; 99285-25; A9270-GY; J0696; J1100; J1650; J2060; J7620-GY